=== PATIENT | female | born 1970 | race African-American/Black ===

== ENCOUNTER 2019-11-29 12:09 | Outpatient (CLI) | payer BC, SELFPAY ==
--- NOTE | ~2019-11-29 | XR_ITS ---
XR chest 2V DATE: 11/29/2019 12:09 INDICATION: Cough, chest pain TECHNIQUE: PA and lateral views COMPARISON: None FINDINGS: Normal heart size. No hilar or mediastinal enlargement. No pulmonary infiltrate or consol idation, pulmonary vascular congestion or pleural effusion or pneumothorax. Status post cholecystectomy. Degenerative spurring and mild scoliosis of the thoracic spine. IMPRESSION: No active cardiopulmonary disease Reviewed, dictated and finalized at location B.
[2019-11-29 12:44] LABS: Basophils Absolute Auto 0.1 K/mm3 (0.0-0.1); Basophils Percent Auto 0.7 % (0.2-1.2); Eosinophils Absolute Auto 0.6 K/mm3 (0-0.3); Eosinophils Percent Auto 8.2 % (0-4.4); Hematocrit 32.4 % (37.0-47.0); Immature Granulocyte Absolute 0.01 K/mm3 (0.00-0.031); Immature Granulocyte Percent A 0.1 % (0-0.5); Lymphocytes Absolute Auto 3.25 K/mm3 (0.9-3.2); Mean Corpuscular HGB Conc 27.8 g/dl (32-36); Mean Corpuscular Hemoglobin 20.3 pg (26-34); Mean Corpuscular Volume 73.1 fl (80-100); Mean Platelet Volume 10.5 fl (7.4-10.4); Monocytes Absolute Auto 0.5 K/mm3 (0.1-0.6); Monocytes Percent Auto 7.1 % (2.6-8.5); Neutrophils Absolute Auto 2.5 K/mm3 (1.3-6.7); Neutrophils Percent Auto 36.9 % (45.5-73.1); Platelet Count Result 407 k/mm3 (150-375); Red Blood Count 4.43 M/mm3 (4.2-5.4); Red Cell Distribution Width 17.7 % (11.5-14.5); White Blood Count 6.9 K/mm3 (4.5-10.0)
[2019-11-29 12:59] LABS: Blood Urea Nitrogen 12 mg/dL (7-17); Calcium 8.8 mg/dL (8.4-10.2); Carbon Dioxide 25 mmol/L (22-30); Chloride 110 mmol/L (98-107); Estimated Glomerular Filt Rate > 60; Glucose 89 mg/dL (65-105); Potassium 3.7 mmol/L (3.4-5.0); Sodium 140 mmol/L (137-145)
[2019-11-29 13:24] LABS: Hypochromasia 1+ (NORMAL); Platelet Estimate Increased (Adequate)
[2019-11-29 13:25] LABS: Anisocytosis 1+ (NORMAL)
== END 2019-11-29 12:10 | disposition home or self-care (01) ==
PROVIDERS: PCP Family Medicine; Visit Provider Family Medicine
DX: D50.9 Iron deficiency anemia, unspecified (principal); F41.8 Other specified anxiety disorders; R05 Cough
CPT/HCPCS: 36415; 71046; 80048; 85025

== ENCOUNTER 2019-12-08 10:38 | Outpatient (CLI) | payer BC, SELFPAY ==
[2019-12-08 11:27] LABS: Iron 31 ug/dL (37-170)
[2019-12-08 11:36] LABS: Percent Iron Saturation 8 % (20-50)
== END 2019-12-08 10:39 | disposition home or self-care (01) ==
PROVIDERS: PCP Family Medicine; Visit Provider Family Medicine
DX: D50.8 Other iron deficiency anemias (principal)
CPT/HCPCS: 36415; 82728; 83540; 83550

== ENCOUNTER 2020-06-22 08:13 | Outpatient (CLI) | payer BC, SELFPAY ==
--- NOTE | 2020-06-22 11:30 | NEURO_ITS ---
Patient Number: [id number] Impression: # Complains of numbness of upper extremities. # No Carpal Tunnel Syndrome or ulnar neuropathy. # Normal motor and sensory nerve conduction study. # Normal needle/EMG exam. # Clinical correlation recommended. Nerve Conduction Studies Anti Sensory Summary Table Stim Site NR Peak (ms) P-T Amp (?V) Site1 Site2 Delta-P (ms) Dist (cm) Geovanni (m/s) Left Median Anti Sensory (2-3nd Digit) Wrist 2.8 96.0 Wrist 2-3nd Digit 2.8 14.0 50 Wrist 2.7 90.6 Wrist 2-3nd Digit 2.8 14.0 50 Right Median Anti Sensory (2-3nd Digit) Wrist 2.8 71.4 Wrist 2-3nd Digit 2.8 14.0 50 Wrist 2.8 78.8 Wrist 2-3nd Digit 2.8 14.0 50 Left Radial Anti Sensory (Base 1st Digit) Wrist 1.9 27.2 Wrist Base 1st Digit 1.9 0.0 Right Radial Anti Sensory (Base 1st Digit) Wrist 2.2 21.7 Wrist Base 1st Digit 2.2 0.0 Left Ulnar Anti Sensory (5th Digit) Wrist 2.5 89.9 Wrist 5th Digit 2.5 14.0 56 Right Ulnar Anti Sensory (5th Digit) Wrist 2.3 66.1 Wrist 5th Digit 2.3 14.0 61 Motor Summary Table Stim Site NR Onset (ms) O-P Amp (mV) Site1 Site2 Delta-0 (ms) Dist (cm) Geovanni (m/s) Left Median Motor (Abd Poll Brev) Wrist 3.7 3.8 Elbow Wrist 4.8 29.0 60 Elbow 8.5 1.3 Right Median Motor (Abd Poll Brev) Wrist 3.2 7.2 Elbow Wrist 5.0 29.0 58 Elbow 8.2 5.9 Left Ulnar Motor (Abd Dig Minimi) Wrist 2.5 6.6 A Elbow Wrist 4.8 29.0 60 A Elbow 7.3 6.2 Right Ulnar Motor (Abd Dig Minimi) Wrist 3.0 4.4 A Elbow Wrist 4.8 28.0 58 A Elbow 7.8 4.4 F Wave Studies NR F-Lat (ms) L-R F-Lat (ms) Left Median (Mrkrs) (Abd Poll Brev) 25.46 1.15 Right Median (Mrkrs) (Abd Poll Brev) 26.61 1.15 Left Ulnar (Mrkrs) (Abd Dig Min) 25.75 1.12 Right Ulnar (Mrkrs) (Abd Dig Min) 26.88 1.12 EMG Side Muscle Nerve Root Ins Act Fibs Amp Dur Recrt Comment Right 1stDorInt Ulnar C8-T1 Nml Nml Nml Nml Nml Right Ext Indicis Radial (Post Int) C7-8 Nml Nml Nml Nml Nml Right Ext Digitorum Radial (Post Int) C7-8 Nml Nml Nml Nml Nml Right BrachioRad Radial C5-6 Nml Nml Nml Nml Nml Right PronatorTeres Median C6-7 Nml Nml Nml Nml Nml Right Abd Poll Brev Median C8-T1 Nml Nml Nml Nml Nml Left 1stDorInt Ulnar C8-T1 Nml Nml Nml Nml Nml Left Ext Indicis Radial (Post Int) C7-8 Nml Nml Nml Nml Nml Left Ext Digitorum Radial (Post Int) C7-8 Nml Nml Nml Nml Nml Left BrachioRad Radial C5-6 Nml Nml Nml Nml Nml Left PronatorTeres Median C6-7 Nml Nml Nml Nml Nml Left Abd Poll Brev Median C8-T1 Nml Nml Nml Nml Nml Right ABD Dig Min Ulnar C8-T1 Nml Nml Nml Nml Nml Left ABD Dig Min Ulnar C8-T1 Nml Nml Nml Nml Nml Right Anconeus Radial C7-8 Nml Nml Nml Nml Nml Right Brachialis Musculocut C5-6 Nml Nml Nml Nml Nml Left Anconeus Radial C7-8 Nml Nml Nml Nml Nml Left Brachialis Musculocut C5-6 Nml Nml Nml Nml Nml MTDD
== END 2020-06-22 08:14 | disposition home or self-care (01) ==
PROVIDERS: PCP Family Medicine; Visit Provider Family Medicine
DX: R20.0 Anesthesia of skin (principal)
CPT/HCPCS: 95886; 95911

== ENCOUNTER 2020-08-14 11:40 | Outpatient (CLI) | payer BC, SELFPAY ==
--- NOTE | ~2020-08-14 | XR_ITS ---
EXAMINATION: XR chest 2V 08/14/2020 12:21 INDICATION: Cough and shortness of breath PROCEDURE: 2 view chest COMPARISON: 11/29/2019 FINDINGS: The lungs are clear. The cardiomediastinal silhouette is within normal limits. There are no pleural effusions. There is no pneumothorax suspected. IMPRESSION: 1: NO ACUTE CARDIOPULMONARY DISEASE. Reviewed, dictated and finalized at location A. RTER EXPORTER
[2020-08-14 12:16] LABS: Basophils Percent Auto 0.6 % (0.2-1.2); Eosinophils Absolute Auto 0.3 K/mm3 (0-0.3); Hematocrit 25.3 % (37.0-47.0); Immature Granulocyte Absolute 0.02 K/mm3 (0.00-0.031); Immature Granulocyte Percent A 0.3 % (0-0.5); Lymphocytes Absolute Auto 3.05 K/mm3 (0.9-3.2); Lymphocytes Percent Auto 44.7 % (18.3-44.2); Mean Corpuscular HGB Conc 27.7 g/dl (32-36); Mean Corpuscular Hemoglobin 17.7 pg (26-34); Mean Corpuscular Volume 64.1 fl (80-100); Mean Platelet Volume 9.2 fl (7.4-10.4); Monocytes Absolute Auto 0.5 K/mm3 (0.1-0.6); Monocytes Percent Auto 7.3 % (2.6-8.5); Neutrophils Percent Auto 43.1 % (45.5-73.1); Nucleated Red Blood Cells Perc 0.3 % (0.0-0.2); Platelet Count Result 620 k/mm3 (150-375); Red Blood Count 3.95 M/mm3 (4.2-5.4); Red Cell Distribution Width 19.1 % (11.5-14.5); White Blood Count 6.8 K/mm3 (4.5-10.0)
--- NOTE | 2020-08-14 12:29 | ECG_ITS ---
Measurements Intervals [place] Rate: 81 P: 17 AL: 169 QRS: 35 QRSD: 82 T: 50 QT: 382 QTc: 444 Interpretive Statements SINUS RHYTHM NORMAL ECG Electronically Signed On 08-14-2020 12:55:08 HOSPITAL CLINIC ASSISTANT by Ulices Hazel D.O.
[2020-08-14 12:39] LABS: Anion Gap 6 mmol/L (8-16); Blood Urea Nitrogen 21 mg/dL (7-17); Calcium 8.5 mg/dL (8.4-10.2); Carbon Dioxide 27 mmol/L (22-30); Chloride 104 mmol/L (98-107); Estimated Glomerular Filt Rate > 60; Glucose 102 mg/dL (65-105); NT Pro B Type Natriuretic Pept 18 PG/ML (5-100); Potassium 4.4 mmol/L (3.4-5.0); Sodium 137 mmol/L (137-145)
[2020-08-14 12:53] LABS: Iron < 10 ug/dL (37-170)
[2020-08-14 13:05] LABS: Percent Iron Saturation < 3 % (20-50)
[2020-08-14 13:31] LABS: Hypochromasia 2+ (NORMAL); Platelet Estimate Adequate (Adequate); Target Cells 1+ (NORMAL)
[2020-08-14 13:32] LABS: Ovalocytes 1+ (NORMAL); Poikilocytosis 1+ (NORMAL); Tear Drop Cells 1+ (NORMAL)
== END 2020-08-14 11:41 | disposition home or self-care (01) ==
PROVIDERS: PCP Family Medicine; Visit Provider Nurse Practitioner Family
DX: D50.9 Iron deficiency anemia, unspecified (principal); R06.02 Shortness of breath; R05 Cough
CPT/HCPCS: 36415; 71046; 80048; 82607; 82728; 83540; 83550; 83880; 85025; 93005

== ENCOUNTER 2020-08-15 10:32 | Emergency (ER) | payer BC, SELFPAY ==
--- NOTE | 2020-08-15 10:36 | PC.NURSE ---
Pt ambulatory to ED with and son. States is here for an iron infusion and some blood infusions maybe. I'm supposed to be admitted . Call to both [facility] [facility] to see if outpatient infusions are scheduled, or patient is supposed to be a direct admission; no order found. ED registration process finishes. Pt requests when putting armband on that this RN call Dr. Lamb's office to confirm that she's not supposed to be outpatient, as she just had labs drawn yesterday and they told her to come in. [id number] Chen's office, spoke with Dr. Chen. States she was told to come to the ED last evening for pt's self-complaints of coughing, wheezing, dyspnea, and inability to walk. They told her at that time that her hgb was 7.0, and to expect that she may get admitted for a blood infusion and possibly an iron infusion. They've also set up a follow up with cardiology and have set up a follow up for iron infusion per Dr. Reardon(?), without a definite date set. Pt then into triage room. Explained to and grown son that the patient is only allowed one visitor while in the ED, and if the patient would be admitted, the hospital's policy during the pandemic is to have no visitors. requests to speak with the patient. senior etl developer Suzette arrives to triage to take pt to the room. asks again about visitor policy and the restriction was explained to him again. Pt states well, I don't think I'm going to stay. What are the consequences if I go home, what will happen? . Suzette and this RN explained that patient could become further fatigued, may become short of breath, and it puts a strain on her heart, leading to heart problems. Pt gives hx of having problems with her iron and needing transfusions since gastric bypass surgery. Outpatient iron infusions stopped when the patients insurance changed in January. Pt and state that they're going to go home and attempt to follow up with Dr. Lamb and wait for the transfusion . Pt, , and son all ambulatory out of the ED.
== END 2020-08-15 10:36 | disposition left against medical advice (07) ==
LOC: ANHED 11:24
PROVIDERS: PCP Family Medicine
DX: Z53.21 Procedure and treatment not carried out due to patient leaving prior to being seen by health care provider (principal)
CPT/HCPCS: 99199

== ENCOUNTER 2020-08-23 07:19 | Outpatient (RCR) | payer BC, SELFPAY ==
[2020-08-23] VITALS (8 sets, daily range): BP systolic 112–133; BP diastolic 62–85; PULSE 80–88; RESP 14–16; TEMP 35.8–37; O2SAT 98–100
[2020-08-23 08:12] LABS: Hematocrit 25.4 % (37.0-47.0); Mean Corpuscular HGB Conc 26.8 g/dl (32-36); Mean Corpuscular Hemoglobin 17.5 pg (26-34); Mean Corpuscular Volume 65.5 fl (80-100); Platelet Count Result 395 k/mm3 (150-375); Red Blood Count 3.88 M/mm3 (4.2-5.4); Red Cell Distribution Width 19.5 % (11.5-14.5); White Blood Count 3.9 K/mm3 (4.5-10.0)
[2020-08-23 08:15] LABS: Hemoglobin 6.8 g/dL (12.0-15.0)
== END 2020-11-19 23:59 | disposition home or self-care (01) ==
LOC: ANHCPCTRAN 07:19
PROVIDERS: Internal Medicine Hematology & Oncology; PCP Family Medicine; Visit Provider Family Medicine
DX: D64.9 Anemia, unspecified (principal)
CPT/HCPCS: 36415; 36430; 85027; 86850; 86900; 86901; 86922; 86923; J7050; P9016

== ENCOUNTER 2020-09-05 15:52 | Outpatient (CLI) | payer BC, SELFPAY ==
[2020-09-05 17:20] LABS: Iron 19 ug/dL (37-170)
[2020-09-05 17:31] LABS: Percent Iron Saturation 4 % (20-50)
== END 2020-09-05 15:53 | disposition home or self-care (01) ==
LOC: ANHLAB 15:53
PROVIDERS: PCP Family Medicine; Visit Provider Family Medicine
DX: D50.9 Iron deficiency anemia, unspecified (principal)
CPT/HCPCS: 36415; 83540; 83550; 85014; 85018

== ENCOUNTER 2020-09-27 07:36 | Outpatient (CLI) | payer BC, SELFPAY ==
--- NOTE | ~2020-09-27 | MR_ITS ---
EXAMINATION: MR brain/brain stem wo con DATE: 09/27/2020 08:12 INDICATION: Right-sided weakness. TECHNIQUE: Magnetic resonance imaging (MRI) of the brain and brainstem was performed without intraven ous contrast. Sequences included sagittal and axial T1-weighted FSE, axial diffusion-weighted FS EPI, axial T2*-weighted GRE, axial T2-weighted FLAIR Propeller, and axial T2-weighted Propeller. Apparent diffusion coefficient (ADC) maps were created. COMPARISON: Brain MRI 04/15/2018 FINDINGS: There is an empty sella. There are scattered areas of nonspecific increased T2-weighted s ignal intensity in the cerebral white matter. There is no intracranial hemorrhage, acute infarction, or abnormal intracranial mass lesion. The ventricles are normal in size. The paranasal sinuses are cl ear. The orbits are normal. There is a trace right mastoid effusion. IMPRESSION: 1. Stable mild nonspecific cerebral white matter disease, which likely represents chronic small vesse l ischemic disease. Reviewed, dictated and finalized at location A. TIVE CUTTER IMPRESSION: 1. Stable mild nonspecific cerebral white matter disease, which likely represen ts chronic small vessel ischemic disease.
== END 2020-09-27 07:37 ==
PROVIDERS: PCP Family Medicine; Visit Provider Family Medicine
DX: R53.1 Weakness (principal); R93.0 Abnormal findings on diagnostic imaging of skull and head, not elsewhere classified
CPT/HCPCS: 70551

== ENCOUNTER 2020-10-31 13:49 | Outpatient (CLI) | payer BC, SELFPAY ==
[2020-10-31 14:30] LABS: Hematocrit 30.7 % (37.0-47.0); Hemoglobin 8.7 g/dL (12.0-15.0); Mean Corpuscular HGB Conc 28.3 g/dl (32-36); Mean Corpuscular Hemoglobin 19.6 pg (26-34); Mean Corpuscular Volume 69.1 fl (80-100); Mean Platelet Volume 9.4 fl (7.4-10.4); Platelet Count Result 399 k/mm3 (150-375); Red Blood Count 4.44 M/mm3 (4.2-5.4); Red Cell Distribution Width 22.1 % (11.5-14.5); White Blood Count 7.8 K/mm3 (4.5-10.0)
[2020-10-31 15:15] LABS: Iron 22 ug/dL (37-170)
[2020-10-31 15:25] LABS: Percent Iron Saturation 5 % (20-50)
== END 2020-10-31 13:50 | disposition home or self-care (01) ==
PROVIDERS: PCP Family Medicine; Visit Provider Family Medicine
DX: D50.9 Iron deficiency anemia, unspecified (principal)
CPT/HCPCS: 36415; 83540; 83550; 85027

== ENCOUNTER → 2020-12-30 01:40 | Outpatient (CLI) | payer BC, SELFPAY ==
[2020-12-30 19:16] LABS: SARS-CoV-2 RNA PCR Negative
== END ==
PROVIDERS: PCP Family Medicine; Visit Provider Internal Medicine Gastroenterology
DX: Z01.812 Encounter for preprocedural laboratory examination (principal); Z20.822 Contact with and (suspected) exposure to COVID-19
CPT/HCPCS: C9803; U0003; U0005

== ENCOUNTER 2021-01-03 01:02 | Day surgery (SDC) | payer BC, SELFPAY ==
[2020-12-29 12:21] VITALS: BMI 35.2
[2021-01-03] MEDS: LACTATED RINGERS 1,000 ML 150 ML IV CONT (12:09)
--- NOTE | 2021-01-03 12:18 | WPDANESEPPF ---
Anes - Initial Pre Proc Eval Procedure: Operation Date: 01/03/21 12:30 Proposed Procedures p Esophagogastroduodenoscopy & Colonoscopy - Lex Delgadillo DO Date/Time: 01/03/21 12:18 Surgeon: Lex Delgadillo DO Pre Op Diagnosis: GERD, constipation Patient Data Age: 50 Gender: F Height: 5 ft 5 in Weight: 96 kg Allergies Allergy/AdvReac Type Severity Reaction Status Date / Time morphine Allergy Intermediate Itching Verified 12/29/20 12:22 tramadol Allergy Intermediate Itching Verified 12/29/20 12:22 Home Medications Medication Instructions Recorded Confirmed Type celecoxib 200 mg capsule 200 mg PO BID #60 cap 07/11/20 12/29/20 Rx pregabalin 150 mg capsule 150 mg PO TID #90 cap 08/17/20 12/29/20 Rx baclofen 10 mg tablet 10 mg PO QID PRN tablet 12/19/20 12/29/20 History alprazolam 1 mg PO BID 12/29/20 12/29/20 History escitalopram oxalate 20 mg PO DAILY 12/29/20 12/29/20 History omeprazole 20 mg PO BID 12/29/20 12/29/20 History quetiapine 200 mg PO HS 12/29/20 12/29/20 History quetiapine 400 mg PO HS 12/29/20 12/29/20 History zolpidem 5 mg tablet 5 mg PO .hs #30 tablet 01/01/21 Rx Patient hx anesthesia problems: none Family hx anesthesia problems: none PMFSH Past Medical History Medical History Anxiety Arthritis Bilateral hand numbness BMI 34.0-34.9,adult Chills Constipation Depression Depression with anxiety Dizziness Edema leg Fibromyalgia GERD (gastroesophageal reflux disease) Headache Idiopathic insomnia Iron deficiency anemia following bariatric surgery Knee pain, bilateral Low vitamin B12 level Lumbosacral radiculopathy due to degenerative joint disease of spine Melena Migraine without aura and without status migrainosus, not intractable Nausea Neuropathy Pes planus of both feet Plantar fasciitis of right foot Rib pain on left side Seizure-like activity Small vessel disease, cerebrovascular Stomach pain Stomach ulcer Vaginal discharge Vision abnormalities Weight gain Surgical History Surgical History History of carpal tunnel release History of gastric bypass History of knee surgery bilateral knee scope Family History Family History Grandparent Hypertension Father No problems noted. Mother Cancer Sibling Asthma Other Carcinoma of colon Diabetes mellitus Family history of coronary artery disease Family history of lung cancer Family history of malignant neoplasm Social History Social History Smoking status: Never smoker Tobacco type: cigarettes Alcohol intake: current Substance use: never Substance use type: does not use Living arrangements: with family Additional occupation/education comments: disabled Spiritual care concerns: No Anes - Eval Final PreProcedure Day of Procedure 01/03/21 12:18 Patient weight: obese Heart: regular rate and rhythm Lungs: clear to auscultation Airway: Mallampati scale class II Neurological: alert and oriented Last oral intake: >/= 8 hours ASA classification: III Emergent: no Anesthetic plan: proceed Anesthesia type and monitoring: general GIVS and standard monitoring Informed Consent: The patient's anesthetic plan and its attendant risks and benefits were discussed with the patient/family/POA. Questions were solicited and answers provided to the satisfaction of the patient/family/POA.
[2021-01-03 12:21] VITALS: BP 126/82; PULSE 82; RESP 18; TEMP 35.9; O2SAT 100; BMI 36.3
--- NOTE | 2021-01-03 12:38 | WPDGICN ---
GI Consult Note Consult date/time: 01/03/21 12:38 HPI: reason for visit EGD colonoscopy. This very pleasant lady seen at the request of the primary physician. Impression: Iron deficiency anemia. Upper versus lower GI etiology. This most likely related to her gastric bypass. B12 deficiency. This is most likely related to her gastric bypass. GERD. She has remote history gastric ulcer disease. She is having dysphagia underlying ring or stricture should be excluded. Chronic idiopathic constipation. Anxiety/depression. Fibromyalgia. Migraines. Neuropathy. Seizure-like activity. Recommendation: EGD and colonoscopy. History: Very pleasant lady is being evaluated for iron deficiency anemia B12 deficiency. She has a history of reflux disease and status post gastric bypass. This is the most likely etiology for her anemia. Patient does have a history of heartburn. She has remote history gastric ulcer disease. She continues to have abdominal burning and heartburn. She has dysphagia to both solids and liquids. She is here for EGD. The patient has a history of chronic constipation. She has a bowel movement every 2 months. She has been tried on multiple medications: Stool softeners, Linzess, MiraLax and OTC medications. She is here for colonoscopy. Previous EGD and colonoscopy has been unrewarding. The patient was found to be recurrently anemic after her iron infusions were stopped she does report occasional melena. Physical examination: General: very pleasant patient in no acute distress. HEENT: Head was normocephalic sclerae is clear mouth without masses neck was supple. Heart: Rate rhythm regular without S3 or S4. Lungs: CTA. Abdomen: Soft with no guarding or rigidity. Bowel sounds were active. Neurologic: Cranial nerves 2 through 12 intact. No focal defects. No clonus. Musculoskeletal system: Revealed no joint tenderness or swelling no muscle atrophy. Extremities: Reveal no significant edema. Skin: Warm and dry with normal turgor. Mental status: intact. Patient is alert and oriented. Review of Systems Review of Systems: All systems reviewed & are unremarkable except as noted in HPI and below [facility] Past Medical History Medical History (Updated 01/03/21 @ 12:39 by Lex Delgadillo DO) Anxiety Arthritis BMI 34.0-34.9,adult Chronic idiopathic constipation Depression with anxiety Fibromyalgia GERD (gastroesophageal reflux disease) Headache Idiopathic insomnia Iron deficiency anemia following bariatric surgery Low vitamin B12 level Lumbosacral radiculopathy due to degenerative joint disease of spine Migraine without aura and without status migrainosus, not intractable Neuropathy Plantar fasciitis of right foot Rib pain on left side Seizure-like activity Small vessel disease, cerebrovascular Stomach ulcer Surgical History Surgical History History of carpal tunnel release History of gastric bypass History of knee surgery bilateral knee scope Family History Family History Grandparent Hypertension Father No problems noted. Mother Cancer Sibling Asthma Other Carcinoma of colon Diabetes mellitus Family history of coronary artery disease Family history of lung cancer Family history of malignant neoplasm Social History Social History Smoking status: Never smoker Tobacco type: cigarettes Alcohol intake: current Substance use: never Substance use type: does not use Living arrangements: with family Additional occupation/education comments: disabled Spiritual care concerns: No Meds Home Medications and Allergies Home Medications Medication Instructions Recorded Confirmed Type celecoxib 200 mg capsule 200 mg PO BID #60 ca
[2021-01-03 13:35] VITALS: BP 118/73; PULSE 87; RESP 26; O2SAT 100
[2021-01-03 13:45] VITALS: BP 102/71; PULSE 80; RESP 17; O2SAT 100
[2021-01-03 13:55] VITALS: BP 118/79; PULSE 77; RESP 16; O2SAT 100
== END 2021-01-03 14:03 | disposition home or self-care (01) ==
PROVIDERS: PCP Family Medicine; Visit Provider Internal Medicine Gastroenterology
PROC: 0DJ08ZZ Inspection of Upper Intestinal Tract, Via Natural or Artificial Opening Endoscopic (ICD-10-PCS; CPT 43235; principal; 2021-01-03 12:30)
DX: D50.9 Iron deficiency anemia, unspecified (principal); K59.09 Other constipation; K21.9 Gastro-esophageal reflux disease without esophagitis; K22.2 Esophageal obstruction; F41.8 Other specified anxiety disorders; G62.9 Polyneuropathy, unspecified; M79.7 Fibromyalgia; E53.8 Deficiency of other specified B group vitamins; Z98.84 Bariatric surgery status; E66.9 Obesity, unspecified; Z68.36 Body mass index [BMI] 36.0-36.9, adult; Z87.11 Personal history of peptic ulcer disease
CPT/HCPCS: 45378; 43239; 43450; 87081; 88305; C9803; J2001; J2704; J7120; U0003; U0005

== ENCOUNTER 2021-01-15 14:49 | Outpatient (CLI) | payer BC, SELFPAY ==
[2021-01-15 15:48] LABS: Hematocrit 29.9 % (37.0-47.0); Hemoglobin 8.2 g/dL (12.0-15.0); Mean Corpuscular HGB Conc 27.4 g/dl (32-36); Mean Corpuscular Hemoglobin 17.9 pg (26-34); Mean Corpuscular Volume 65.4 fl (80-100); Mean Platelet Volume 10.1 fl (7.4-10.4); Platelet Count Result 337 k/mm3 (150-375); Red Blood Count 4.57 M/mm3 (4.2-5.4); Red Cell Distribution Width 18.6 % (11.5-14.5); White Blood Count 7.7 K/mm3 (4.5-10.0)
[2021-01-15 15:57] LABS: Anion Gap 7 mmol/L (8-16); Blood Urea Nitrogen 12 mg/dL (7-17); Calcium 9.6 mg/dL (8.4-10.2); Carbon Dioxide 26 mmol/L (22-30); Chloride 108 mmol/L (98-107); Estimated Glomerular Filt Rate > 60; Glucose 92 mg/dL (65-105); Potassium 4.2 mmol/L (3.4-5.0); Sodium 141 mmol/L (137-145)
[2021-01-15 16:36] LABS: Iron 17 ug/dL (37-170)
[2021-01-15 16:45] LABS: Percent Iron Saturation 3 % (20-50)
== END 2021-01-15 14:50 | disposition home or self-care (01) ==
LOC: ANHLAB 14:51
PROVIDERS: Nurse Practitioner Family; PCP Family Medicine; Visit Provider Family Medicine
DX: D50.8 Other iron deficiency anemias (principal); R60.0 Localized edema
CPT/HCPCS: 36415; 80048; 83540; 83550; 85027

== ENCOUNTER 2021-02-07 09:01 | Outpatient (CLI) | payer BC, SELFPAY ==
[2021-02-07 09:19] LABS: Basophils Percent Auto 0.5 % (0.2-1.2); Eosinophils Absolute Auto 0.1 K/mm3 (0-0.3); Eosinophils Percent Auto 1.6 % (0-4.4); Hemoglobin 8.1 g/dL (12.0-15.0); Immature Granulocyte Absolute 0.01 K/mm3 (0.00-0.031); Immature Granulocyte Percent A 0.2 % (0-0.5); Lymphocytes Absolute Auto 2.81 K/mm3 (0.9-3.2); Lymphocytes Percent Auto 45.6 % (18.3-44.2); Mean Corpuscular Hemoglobin 17.5 pg (26-34); Mean Corpuscular Volume 64.8 fl (80-100); Mean Platelet Volume 8.9 fl (7.4-10.4); Monocytes Absolute Auto 0.6 K/mm3 (0.1-0.6); Monocytes Percent Auto 10.1 % (2.6-8.5); Neutrophils Absolute Auto 2.6 K/mm3 (1.3-6.7); Platelet Count Result 211 k/mm3 (150-375); Red Blood Count 4.63 M/mm3 (4.2-5.4); Red Cell Distribution Width 19.7 % (11.5-14.5); White Blood Count 6.2 K/mm3 (4.5-10.0)
[2021-02-07 09:28] LABS: Anion Gap 9 mmol/L (8-16); Blood Urea Nitrogen 14 mg/dL (7-17); Calcium 8.9 mg/dL (8.4-10.2); Carbon Dioxide 26 mmol/L (22-30); Chloride 107 mmol/L (98-107); Estimated Glomerular Filt Rate > 60; Glucose 94 mg/dL (65-105); Potassium 4.2 mmol/L (3.4-5.0); Sodium 142 mmol/L (137-145)
[2021-02-07 09:58] LABS: Anisocytosis 1+ (NORMAL); Hypochromasia 2+ (NORMAL); Microcytosis 1+ (NORMAL); Ovalocytes 1+ (NORMAL); Platelet Estimate Adequate (Adequate)
== END 2021-02-07 09:02 | disposition home or self-care (01) ==
PROVIDERS: PCP Family Medicine; Visit Provider Family Medicine
DX: R60.0 Localized edema (principal); D50.8 Other iron deficiency anemias
CPT/HCPCS: 36415; 80048; 85025

== ENCOUNTER 2021-03-15 07:49 | Outpatient (CLI) | payer BC, SELFPAY ==
--- NOTE | ~2021-03-15 | XR_ITS ---
XR ribs BI 3V w CXR 2V DATE: 03/15/2021 10:34 INDICATION: Fall. Bilateral rib pain. TECHNIQUE: PA and lateral chest. 3 views of left ribs and 3 views of right ribs. COMPARISON: 08/14/2022 view chest FINDINGS: Normal heart size. Aortic arch calcification. Calcified right paratracheal nodes consistent with old granulomatous disease. No pulmonary infiltrate or consolidation, pleural effusion or pulmon luna vascular congestion or pneumothorax. Diffuse osteopenia. No rib fracture or bone destruction is detected. Surgical clips overlie the right upper abdomen, likely due to cholecystectomy. IMPRESSION: No rib fracture is detected Osteopenia No active cardiopulmonary disease Aortic arch calcification Status post cholecystectomy Reviewed, dictated and finalized at location A.
[2021-03-15 08:48] LABS: Hematocrit 28.7 % (37.0-47.0); Hemoglobin 7.5 g/dL (12.0-15.0); Mean Corpuscular HGB Conc 26.1 g/dl (32-36); Mean Corpuscular Hemoglobin 17.3 pg (26-34); Mean Corpuscular Volume 66.1 fl (80-100); Mean Platelet Volume 9.6 fl (7.4-10.4); Platelet Count Result 366 k/mm3 (150-375); Red Blood Count 4.34 M/mm3 (4.2-5.4); Red Cell Distribution Width 20.2 % (11.5-14.5); White Blood Count 7.5 K/mm3 (4.5-10.0)
[2021-03-15 08:58] LABS: Anion Gap 9 mmol/L (8-16); Blood Urea Nitrogen 19 mg/dL (7-17); Calcium 8.8 mg/dL (8.4-10.2); Carbon Dioxide 25 mmol/L (22-30); Chloride 105 mmol/L (98-107); Estimated Glomerular Filt Rate > 60; Glucose 92 mg/dL (65-105); Potassium 4.2 mmol/L (3.4-5.0); Sodium 139 mmol/L (137-145)
[2021-03-15 09:23] LABS: Iron 14 ug/dL (37-170)
[2021-03-15 09:33] LABS: Percent Iron Saturation 3 % (20-50)
== END 2021-03-15 07:50 | disposition home or self-care (01) ==
PROVIDERS: PCP Family Medicine; Referring Provider Nurse Practitioner Family; Visit Provider Family Medicine
DX: D50.8 Other iron deficiency anemias (principal); M85.88 Other specified disorders of bone density and structure, other site; I70.0 Atherosclerosis of aorta; Z90.49 Acquired absence of other specified parts of digestive tract
CPT/HCPCS: 36415; 71046; 71110; 80048; 83540; 83550; 85027

== ENCOUNTER 2021-03-26 08:00 | Outpatient (RCR) | payer BC, SELFPAY ==
[2021-03-26] VITALS (11 sets, daily range): BP systolic 116–131; BP diastolic 66–86; PULSE 83–96; RESP 14–20; TEMP 35.8–36.8; O2SAT 97–100
[2021-03-26 08:24] LABS: Hemoglobin 6.9 g/dL (12.0-15.0)
[2021-03-26] MEDS: diphenhydrAMINE HCl CAP 25 MG CAPSULE PO (09:17)
[2021-03-26] MEDS: methylPREDNISolone SOD SUCC 125 MG VIAL IV PUSH (09:18)
[2021-03-26] MEDS: FUROSEMIDE INJ 40 MG/4 ML VIAL IV PUSH (11:58)
[2021-03-26] MEDS: NITROGLYCERIN SL 0.4 MG TABLET (12:46)
[2021-03-26] MEDS: ACETAMINOPHEN 500 MG TABLET 1000 MG (13:40)
--- NOTE | 2021-03-26 15:49 | PC.NURSE ---
Patient complaining of chest pain 02/08, Dr. Chen said she should go to ER, and patient refuses to go. Dr. Chen said to give SL Nitro. Patient stated that it helped. Patient then complained of a headache 1000mg of Acetaminophen given per Dr. Chen's order. Dr. Chen said if patient will not go to the ER at least finish out the unit, then send her home.
== END 2021-06-22 23:59 | disposition home or self-care (01) ==
LOC: ANHCPCTRAN 08:00
PROVIDERS: PCP Family Medicine; Visit Provider Family Medicine
DX: D50.9 Iron deficiency anemia, unspecified (principal)
CPT/HCPCS: 36415; 36430; 85014; 85018; 86850; 86900; 86901; 86920; 96374; A9270; J1940; J2930; J7050; P9016

== ENCOUNTER 2021-04-17 11:36 | Outpatient (CLI) | payer BC, SELFPAY ==
--- NOTE | ~2021-04-17 | XR_ITS ---
EXAMINATION: XR chest 2V 04/17/2021 12:34 INDICATION: Cough PROCEDURE: PA and lateral views of the chest COMPARISON: 03/15/2021 FINDINGS: The lungs are clear. The cardiomediastinal silhouette is within normal limits. There are no pleural effusions. There is no pneumothorax suspected. IMPRESSION: 1: NO ACUTE CARDIOPULMONARY DISEASE. Reviewed, dictated and finalized at location A.
[2021-04-17 12:15] LABS: Hematocrit 35.9 % (37.0-47.0); Mean Corpuscular HGB Conc 27.9 g/dl (32-36); Mean Corpuscular Hemoglobin 20.4 pg (26-34); Mean Corpuscular Volume 73.3 fl (80-100); Mean Platelet Volume 9.6 fl (7.4-10.4); Platelet Count Result 551 k/mm3 (150-375); Red Cell Distribution Width 29.2 % (11.5-14.5); White Blood Count 8.3 K/mm3 (4.5-10.0)
[2021-04-17 12:29] LABS: Anion Gap 7 mmol/L (8-16); Blood Urea Nitrogen 14 mg/dL (7-17); Calcium 9.4 mg/dL (8.4-10.2); Carbon Dioxide 27 mmol/L (22-30); Chloride 107 mmol/L (98-107); Estimated Glomerular Filt Rate > 60; Glucose 94 mg/dL (65-110); Potassium 4.3 mmol/L (3.4-5.0); Sodium 141 mmol/L (137-145)
[2021-04-17 13:22] LABS: Iron 38 ug/dL (37-170)
[2021-04-17 13:32] LABS: Percent Iron Saturation 8 % (20-50)
== END 2021-04-17 11:37 | disposition home or self-care (01) ==
LOC: ANHLAB 11:38
PROVIDERS: PCP Family Medicine; Visit Provider Family Medicine
DX: D50.8 Other iron deficiency anemias (principal); R05 Cough
CPT/HCPCS: 36415; 71046; 80048; 83540; 83550; 85027

== ENCOUNTER 2021-06-13 09:35 | Outpatient (CLI) | payer BC, SELFPAY ==
[2021-06-13 10:05] LABS: Hematocrit 35.3 % (37.0-47.0); Hemoglobin 10.1 g/dL (12.0-15.0); Mean Corpuscular HGB Conc 28.6 g/dl (32-36); Mean Corpuscular Volume 76.9 fl (80-100); Mean Platelet Volume 9.5 fl (7.4-10.4); Platelet Count Result 292 k/mm3 (150-375); Red Blood Count 4.59 M/mm3 (4.2-5.4); Red Cell Distribution Width 23.2 % (11.5-14.5); White Blood Count 7.9 K/mm3 (4.5-10.0)
[2021-06-13 11:03] LABS: Iron 28 ug/dL (37-170)
[2021-06-13 11:12] LABS: Percent Iron Saturation 5 % (20-50)
== END 2021-06-13 09:36 | disposition home or self-care (01) ==
PROVIDERS: PCP Family Medicine; Visit Provider Family Medicine
DX: D50.8 Other iron deficiency anemias (principal)
CPT/HCPCS: 36415; 83540; 83550; 85027

== ENCOUNTER 2021-08-06 09:17 | Outpatient (CLI) | payer BC, SELFPAY ==
[2021-08-06 09:53] LABS: Anion Gap 13 mmol/L (8-16); Blood Urea Nitrogen 17 mg/dL (7-17); Calcium 9.5 mg/dL (8.4-10.2); Carbon Dioxide 25 mmol/L (22-30); Chloride 97 mmol/L (98-107); Estimated Glomerular Filt Rate > 60; Glucose 117 mg/dL (65-110); Potassium 3.7 mmol/L (3.4-5.0); Sodium 135 mmol/L (137-145)
[2021-08-06 09:54] LABS: Iron 32 ug/dL (37-170)
[2021-08-06 10:03] LABS: Percent Iron Saturation 7 % (20-50)
[2021-08-06 10:22] LABS: Hematocrit 37.3 % (37.0-47.0); Hemoglobin 11.2 g/dL (12.0-15.0); Mean Corpuscular Hemoglobin 21.5 pg (26-34); Mean Corpuscular Volume 71.7 fl (80-100); Mean Platelet Volume 10.6 fl (7.4-10.4); Platelet Count Result 380 k/mm3 (150-375); Red Cell Distribution Width 17.8 % (11.5-14.5); White Blood Count 8.5 K/mm3 (4.5-10.0)
== END 2021-08-06 09:18 | disposition home or self-care (01) ==
LOC: ANHLAB 09:19
PROVIDERS: PCP Family Medicine; Visit Provider Family Medicine
DX: R60.0 Localized edema (principal); D50.9 Iron deficiency anemia, unspecified
CPT/HCPCS: 36415; 80048; 83540; 83550; 85027

== ENCOUNTER 2022-04-24 14:17 | Outpatient (CLI) | payer OTHER, BC, SELFPAY ==
[2022-04-24 15:36] LABS: Basophils Percent Auto 0.4 % (0.2-1.2); Eosinophils Absolute Auto 0.1 K/mm3 (0-0.3); Eosinophils Percent Auto 0.9 % (0-4.4); Hematocrit 38.4 % (37.0-47.0); Hemoglobin 11.1 g/dL (12.0-15.0); Immature Granulocyte Absolute 0.03 K/mm3 (0.00-0.031); Immature Granulocyte Percent A 0.3 % (0-0.5); Lymphocytes Absolute Auto 4.11 K/mm3 (0.9-3.2); Lymphocytes Percent Auto 39.5 % (18.3-44.2); Mean Corpuscular HGB Conc 28.9 g/dl (32-36); Mean Corpuscular Hemoglobin 22.2 pg (26-34); Mean Corpuscular Volume 76.8 fl (80-100); Mean Platelet Volume 10.3 fl (7.4-10.4); Monocytes Absolute Auto 0.7 K/mm3 (0.1-0.6); Monocytes Percent Auto 6.4 % (2.6-8.5); Neutrophils Absolute Auto 5.5 K/mm3 (1.3-6.7); Neutrophils Percent Auto 52.5 % (45.5-73.1); Platelet Count Result 401 k/mm3 (150-375); Red Cell Distribution Width 19.7 % (11.5-14.5); White Blood Count 10.4 K/mm3 (4.5-10.0)
[2022-04-24 15:51] LABS: Anion Gap 12 mmol/L (8-16); Blood Urea Nitrogen 14 mg/dL (7-17); Calcium 8.9 mg/dL (8.4-10.2); Carbon Dioxide 23 mmol/L (22-30); Chloride 103 mmol/L (98-107); Estimated Glomerular Filt Rate > 60; Glucose 79 mg/dL (65-110); Potassium 4.1 mmol/L (3.4-5.0); Sodium 138 mmol/L (137-145)
[2022-04-24 16:02] LABS: Iron 28 ug/dL (37-170)
[2022-04-24 16:12] LABS: Percent Iron Saturation 6 % (20-50)
[2022-04-24 16:19] LABS: Vitamin D 25 Hydroxy 15.8 ng/mL
[2022-04-26 19:36] LABS: Homocysteine 14.4 umol/L (<10.4)
[2022-04-26 23:24] LABS: Methylmalonic Acid 205 nmol/L (87-318)
[2022-04-27 21:19] LABS: Alpha 1 Globulin 0.3 g/dL (0.2-0.3); Beta 1 Globulin 0.5 g/dL (0.4-0.6); Gamma Globulin 1.1 g/dL (0.8-1.7); Protein, Total 7.3 g/dL (6.1-8.1)
== END 2022-04-24 14:18 | disposition home or self-care (01) ==
PROVIDERS: PCP Family Medicine; Visit Provider Family Medicine
DX: D50.8 Other iron deficiency anemias (principal); E53.8 Deficiency of other specified B group vitamins; E55.9 Vitamin D deficiency, unspecified; G99.2 Myelopathy in diseases classified elsewhere
CPT/HCPCS: 36415; 80048; 82306; 82607; 83090; 83540; 83550; 83921; 84155; 84165; 85025

== ENCOUNTER 2022-04-28 07:21 | Outpatient (CLI) | payer OTHER, BC, SELFPAY ==
--- NOTE | ~2022-04-28 | MR_ITS ---
EXAMINATION: MR thoracic spine wo/w con DATE: 04/28/2022 09:30 INDICATION: Myelopathy. Back pain. Bilateral arm, hand, leg, and foot weakness. TECHNIQUE: Magnetic resonance imaging (MRI) of the thoracic spine was performed without and with 20 m L MultiHance intravenous contrast. COMPARISON: None FINDINGS: There is 6 degrees dextrocurvature of mid thoracic spine spine. There is 6 degrees levocurv ature of lower thoracic spine. Vertebral body heights are normal. There is mildly decreased disc heig ht from T4-T5 through T6-T7. At T4-T5, there is a bulging disc with mild central canal stenosis. At T 5-T6, the disc is bulging with mild central canal stenosis. At T6-T7, the disc is bulging with mild c entral canal stenosis. At T7-T8, the disc is bulging with mild central canal stenosis. There is multi level mild facet joint osteoarthritis. On the left, there is mild neural foraminal stenosis at T1-T2. The spinal cord signal intensity is normal, but sensitivity and specificity are moderately decreased by motion artifact. IMPRESSION: 1. Mild thoracic spondylosis. Reviewed, dictated and finalized at location A.
--- NOTE | ~2022-04-28 | MR_ITS ---
EXAMINATION: MR lumbar spine wo/w con DATE: 04/28/2022 09:31 INDICATION: Myelopathy. Back pain. TECHNIQUE: Magnetic resonance imaging (MRI) of the lumbar spine was performed without and with 20 mL MultiHance intravenous contrast. COMPARISON: None FINDINGS: There is 9 degrees dextrocurvature of lumbar spine. L5 is a transitional segment. There is 3 mm additional listhesis of L4 on L5. Vertebral body heights are normal. There is mildly decreased d isc height at L4-L5. The following disc levels are specifically discussed: L1-L2: The disc does not extend beyond the endplate margin. There is moderate bilateral facet joint o steoarthritis. There is no neural foraminal stenosis. There is no central canal stenosis. L2-L3: There is a right foraminal protrusion. There is severe bilateral facet joint osteoarthritis. T here is mild right neural foraminal stenosis. There is no central canal stenosis. L3-L4: The disc is bulging and has an annular fissure. There is severe right and moderate left facet joint osteoarthritis. There is mild right neural foraminal stenosis. There is no central canal stenos is. L4-L5: The disc is bulging and has an annular fissure. There is mild right and severe left facet join t osteoarthritis. There is mild bilateral neural foraminal stenosis. There is mild central canal sten osis. L5-S1: The disc does not extend beyond the endplate margin. There is moderate right and severe left f acet joint osteoarthritis. There is mild bilateral neural foraminal stenosis. There is no central can al stenosis. IMPRESSION: 1. Mild lumbar spondylosis. Reviewed, dictated and finalized at location A. IMPRESSION: 1. Mild lumbar spondylosis.
== END 2022-04-28 07:22 | disposition home or self-care (01) ==
PROVIDERS: PCP Family Medicine
DX: M47.894 Other spondylosis, thoracic region (principal); M47.896 Other spondylosis, lumbar region
CPT/HCPCS: 72157; 72158; A9577

== ENCOUNTER 2022-08-02 13:49 | Outpatient (CLI) | payer OTHER, BC, SELFPAY ==
--- NOTE | ~2022-08-02 | XR_ITS ---
XR hand RT min 3V DATE: 08/02/2022 14:12 INDICATION: Fall. Finger pain. TECHNIQUE: 3 views COMPARISON: None FINDINGS: There is osteopenia. No fracture or dislocation, periosteal reaction or bone destruction. No erosive change or chondrocalc inosis is noted. IMPRESSION: Osteopenia Reviewed, dictated and finalized at location B. R PROJECT COORDINATION SPECIALIST IMPRESSION: Osteopenia
== END 2022-08-02 13:50 | disposition home or self-care (01) ==
PROVIDERS: PCP Family Medicine; Visit Provider Nurse Practitioner Family
DX: M79.644 Pain in right finger(s) (principal); M85.841 Other specified disorders of bone density and structure, right hand
CPT/HCPCS: 73130

== ENCOUNTER 2022-10-17 09:24 | Outpatient (CLI) | payer OTHER, BC, SELFPAY ==
[2022-10-17 10:58] LABS: Iron 23 ug/dL (37-170)
[2022-10-17 11:09] LABS: Percent Iron Saturation 5 % (20-50)
== END 2022-10-17 09:25 | disposition home or self-care (01) ==
PROVIDERS: PCP Family Medicine; Visit Provider Nurse Practitioner Family
DX: D50.8 Other iron deficiency anemias (principal)
CPT/HCPCS: 36415; 83540; 83550

== ENCOUNTER 2022-10-17 14:47 | Outpatient (CLI) | payer OTHER, BC, SELFPAY ==
--- NOTE | ~2022-10-17 | MM_ITS ---
EXAMINATION: MM screening jamie BI w zoë HISTORY: Screening mammogram TECHNIQUE: Craniocaudal and mediolateral oblique 3-D tomosynthesis images were obtained and synthetic 2-D images were generated. CAD analysis was submitted and interpreted. COMPARISON: 02/14/2018, 01/28/2017 bilateral screening mammogram examinations BREAST PARENCHYMAL COMPOSITION: There are scattered areas of fibroglandular density. FINDINGS: There is no evidence of suspicious mass, calcification, or architectural distortion to sugg est malignancy in either breast. There has been no suspicious interval change. IMPRESSION: 1. No mammographic evidence of malignancy. 2. Recommend routine screening mammography in one year. BI-RADS Category 1: Negative Reviewed, dictated and finalized at location A. O LAB SPECIALIST
== END 2022-10-17 14:48 ==
PROVIDERS: PCP Family Medicine; Visit Provider Family Medicine
DX: Z12.31 Encounter for screening mammogram for malignant neoplasm of breast (principal)
CPT/HCPCS: 77063; 77067

== ENCOUNTER 2022-11-12 10:45 | Outpatient (CLI) | payer BC, SELFPAY ==
[2022-11-12 11:21] LABS: Hematocrit 36.2 % (37.0-47.0); Hemoglobin 10.5 g/dL (12.0-15.0); Mean Corpuscular Hemoglobin 22.5 pg (26-34); Mean Corpuscular Volume 77.5 fl (80-100); Mean Platelet Volume 10.6 fl (7.4-10.4); Platelet Count Result 336 k/mm3 (150-375); Red Blood Count 4.67 M/mm3 (4.2-5.4); Red Cell Distribution Width 17.9 % (11.5-14.5); White Blood Count 7.5 K/mm3 (4.5-10.0)
[2022-11-12 11:38] LABS: Alanine Aminotransferase 47 U/L (6-35); Albumin Level 4.1 g/dL (3.5-5.1); Alkaline Phosphatase 129 U/L (38-126); Anion Gap 6 mmol/L (8-16); Aspartate Amino Transferase 46 U/L (14-36); Bilirubin,Total 0.3 mg/dL (0.2-1.3); Blood Urea Nitrogen 13 mg/dL (7-17); Calcium 8.6 mg/dL (8.4-10.2); Carbon Dioxide 28 mmol/L (22-30); Chloride 105 mmol/L (98-107); Estimated Glomerular Filt Rate > 60; Glucose 96 mg/dL (65-110); Potassium 4.2 mmol/L (3.4-5.0); Sodium 139 mmol/L (137-145)
[2022-11-12 12:12] LABS: Vitamin D 25 Hydroxy 27.1 ng/mL
== END 2022-11-12 10:46 | disposition home or self-care (01) ==
LOC: ANHLAB 10:46
PROVIDERS: PCP Family Medicine; Visit Provider Family Medicine
DX: D50.9 Iron deficiency anemia, unspecified (principal); E53.8 Deficiency of other specified B group vitamins; E55.9 Vitamin D deficiency, unspecified; R79.89 Other specified abnormal findings of blood chemistry; G62.9 Polyneuropathy, unspecified
CPT/HCPCS: 36415; 80053; 82306; 82607; 84443; 85027

== ENCOUNTER 2023-03-06 11:16 | Outpatient (CLI) | payer OTHER, SELFPAY ==
--- NOTE | ~2023-03-06 | XR_ITS ---
Clinical Indication: Chest pain AP and lateral views of the chest: Comparison: 04/17/2021 Findings: The lungs are clear, without evidence of focal consolidation or pleural effusion. Cardiome diastinal silhouette is within normal limits. Calcified right hilar lymph nodes are present. Bones an d soft tissues are unremarkable. Impression: Clear lungs. Reviewed, dictated and finalized at location . Impression: Clear lungs.
[2023-03-06 12:02] LABS: Basophils Absolute Auto 0.1 K/mm3 (0.0-0.1); Basophils Percent Auto 0.6 % (0.2-1.2); Eosinophils Absolute Auto 0.2 K/mm3 (0-0.3); Eosinophils Percent Auto 1.9 % (0-4.4); Hematocrit 34.7 % (37.0-47.0); Hemoglobin 9.8 g/dL (12.0-15.0); Immature Granulocyte Absolute 0.03 K/mm3 (0.00-0.031); Immature Granulocyte Percent A 0.4 % (0-0.5); Lymphocytes Absolute Auto 3.19 K/mm3 (0.9-3.2); Lymphocytes Percent Auto 38.7 % (18.3-44.2); Mean Corpuscular HGB Conc 28.2 g/dl (32-36); Mean Corpuscular Hemoglobin 21.6 pg (26-34); Mean Corpuscular Volume 76.6 fl (80-100); Mean Platelet Volume 10.8 fl (7.4-10.4); Monocytes Absolute Auto 0.7 K/mm3 (0.1-0.6); Monocytes Percent Auto 8.4 % (2.6-8.5); Neutrophils Absolute Auto 4.1 K/mm3 (1.3-6.7); Platelet Count Result 373 k/mm3 (150-375); Red Blood Count 4.53 M/mm3 (4.2-5.4); Red Cell Distribution Width 17.9 % (11.5-14.5); White Blood Count 8.3 K/mm3 (4.5-10.0)
[2023-03-06 12:11] LABS: Anion Gap 5 mmol/L (8-16); Blood Urea Nitrogen 15 mg/dL (7-17); Calcium 8.7 mg/dL (8.4-10.2); Carbon Dioxide 34 mmol/L (22-30); Chloride 100 mmol/L (98-107); Estimated Glomerular Filt Rate > 60; Glucose 99 mg/dL (65-110); Potassium 3.8 mmol/L (3.4-5.0); Sodium 139 mmol/L (137-145)
[2023-03-06 12:25] LABS: Anisocytosis 1+ (NORMAL); Hemoglobin A1C 6.2 % (<5.7); Platelet Estimate Adequate (Adequate); Schistocytes None Seen (NORMAL)
[2023-03-06 12:27] LABS: Iron 28 ug/dL (37-170)
--- NOTE | 2023-03-06 12:35 | ECG_ITS ---
Measurements Intervals [place] Rate: 66 P: 7 VA: 173 QRS: 13 QRSD: 81 T: 89 QT: 353 QTc: 370 Interpretive Statements SINUS RHYTHM NONSPECIFIC T-WAVE ABNORMALITY- ANTEROLAT/HIGH LAT LEADS BASELINE ARTIFACT- I, III, AVR, AVL BORDERLINE ECG COMPARED TO ECG 08/14/2020 12:37:45 T-WAVE ABNORMALITY NOW PRESENT Electronically Signed On 03-06-2023 13:31:52 CDT by Ulices Hazel D.O.
[2023-03-06 12:36] LABS: Percent Iron Saturation 5 % (20-50)
[2023-03-06 12:46] LABS: Vitamin D 25 Hydroxy 18.7 ng/mL
== END 2023-03-06 11:17 | disposition home or self-care (01) ==
PROVIDERS: PCP Family Medicine; Visit Provider Family Medicine
DX: R07.9 Chest pain, unspecified (principal); R73.09 Other abnormal glucose; G62.9 Polyneuropathy, unspecified; E55.9 Vitamin D deficiency, unspecified; R79.89 Other specified abnormal findings of blood chemistry; D50.9 Iron deficiency anemia, unspecified; R07.89 Other chest pain; E53.8 Deficiency of other specified B group vitamins; R06.00 Dyspnea, unspecified; R94.31 Abnormal electrocardiogram [ECG] [EKG]
CPT/HCPCS: 36415; 71046; 80048; 82306; 82607; 83036; 83540; 83550; 84443; 85025; 93005

== ENCOUNTER 2023-04-15 10:07 | Outpatient (CLI) | payer OTHER, SELFPAY ==
--- NOTE | 2023-04-15 | ECHO_ITS ---
Patient Info Name: Dina Orr Age: 53 years : 1970 Gender: Female Ht: 64 in Wt: 231 lbs BSA: 2.23 m2 HR: 85 bpm BP: 146 / 92 mmHg Heart Rhythm: Sinus Rhythm Technical Quality: Fair Exam Date: 04/15/2023 10:40 AM Exam Location: [facility] Pulmonary Patient Status: Outpatient Admit Date: 04/15/2023 Staff Ordering Physician: Roman Chen MD Charm Filter Operator Helper: Christine Riddle RDCS Attending Provider: Roman Chen MD Referring Physician: Gustavo KILPATRICK; Exam Type: CA echo doppler color flow Study Info Indications R60.9 - Edema, unspecified R94.31 - Abnormal electrocardiogram ECG EKG R06.09 - Other forms of dyspnea Complete two-dimensional, color flow and Doppler transthoracic echocardiogram is performed. Summary 1. Complete two-dimensional, color flow and Doppler transthoracic echocardiogram is performed. 2. Left ventricular chamber dimension is normal. 3. Left ventricular systolic function is normal, estimated at 60-65%. 4. There is moderate concentric increased left ventricular wall thickness. 5. The left ventricular diastolic function is normal. 6. E/e' 8 is minimally elevated. 7. No pulmonary hypertension, estimated pulmonary arterial systolic pressure is 24 mmHg. Left Ventricle E/e' 8 is minimally elevated. Left ventricular chamber dimension is normal. Left ventricular systolic function is normal, estimated at 60-65%. There is moderate concentric increased left ventricular wall thickness. The left ventricular diastolic function is normal. Right Ventricle Right ventricular chamber dimension is normal. Right ventricular systolic function is normal. Left Atria Left atrial chamber dimension is normal. Right Atria Right atrial chamber dimension is normal. Aortic Valve The aortic valve is trileaflet. There is no aortic valve stenosis. There is no aortic valve regurgitation. Pulmonic Valve There is no pulmonic regurgitation. Mitral Valve There is no mitral valve stenosis. There is no mitral valve regurgitation. Tricuspid Valve There is no tricuspid valve regurgitation. No pulmonary hypertension, estimated pulmonary arterial systolic pressure is 24 mmHg. Pericardium/Pleural There is no pericardial effusion. Inferior Vena Cava Normal inferior vena cava with >50% collapse upon inspiration consistent with normal right atrial pressure, 5 mmHg. Aorta The aortic root size at the sinus of Valsalva is normal. Left Ventricular Outflow Tract Name Value Normal LVOT 2D LVOT Diameter 2.0 cm LVOT Doppler LVOT Peak Gradient 5 mmHg LVOT Mean Gradient 3 mmHg LVOT VTI 23 cm LVOT VTI/AV VTI Ratio 0.9 LVOT Stroke Volume 75 ml LVOT CO 6.0 l/min LVOT CI 2.7 l/min/m2 Pulmonic Valve Name Value Normal RVOT Doppler
== END 2023-04-15 10:08 | disposition home or self-care (01) ==
PROVIDERS: PCP Family Medicine; Visit Provider Family Medicine
DX: R60.9 Edema, unspecified (principal); R94.31 Abnormal electrocardiogram [ECG] [EKG]; R06.09 Other forms of dyspnea
CPT/HCPCS: 93306

== ENCOUNTER 2024-07-22 11:57 | Emergency (ER) | payer OTHER, SELFPAY ==
[2024-07-22] VITALS (8 sets, daily range): BP systolic 137–138; BP diastolic 94–95; PULSE 71–82; RESP 12–20; TEMP 36.4; O2SAT 98–100
--- NOTE | ~2024-07-22 | CT_ITS ---
EXAMINATION: CT brain wo con DATE: 07/22/2024 13:47 INDICATION: Altered mental status. TECHNIQUE: Computed tomography (CT) of the head was performed without intravenous contrast. The mA wa s adjusted according to patient size. Iterative reconstruction technique was employed. The dose-lengt h product was 605.33 mGy-cm. COMPARISON: Brain MRI 09/27/2020 FINDINGS: There is no intracranial hemorrhage, acute infarction, or abnormal intracranial mass lesion . There is an empty sella. There are scattered areas of low attenuation in the cerebral white matter. The ventricles are normal in size. There is mild mucosal thickening in the ethmoid sinuses. The mast oid air cells are normal. The orbits are normal. IMPRESSION: 1. Stable mild nonspecific cerebral white matter disease, which likely represents chronic small vesse l ischemic disease. Reviewed, dictated and finalized at location A. CLAMP OPERATOR IMPRESSION: 1. Stable mild nonspecific cerebral white matter disease, which likely represen ts chronic small vessel ischemic disease.
--- NOTE | ~2024-07-22 | XR_ITS ---
CHEST RADIOGRAPH CLINICAL HISTORY: AMS, WEAKNESS, SOB, BACK PAIN . COMPARISON: 03/06/2023 TECHNIQUE: Single portable view of the chest. FINDINGS The cardiomediastinal silhouette is enlarged, unchanged. Small bore catheter projects to the left of midline, within the overlying soft tissues, extending int o the peritoneal cavity. The lungs are clear. Visualized osseous structures and remaining soft tissues are otherwise unremarkable. IMPRESSION: Persisting cardiomegaly without focal infiltrate or effusion. Reviewed, dictated and finalized at location A. OUT WORKER
--- NOTE | 2024-07-22 12:05 | ECG_ITS ---
Test Date: 2024-07-22 12:16:04 Measurements Intervals [place] Rate: 77 P: 43 SD: 166 QRS: 14 QRSD: 89 T: 83 QT: 382 QTc: 435 Interpretive Statements SINUS RHYTHM BORDERLINE T WAVE ABNORMALITY- HIGH LATERAL LEADS BASELINE ARTIFACT- I, III, AVR, AVL, AVF, V4-V6 BORDERLINE ECG No previous ECG available for comparison Electronically Signed On 07-22-2024 12:26:39 [employer]MB[employer]ING [employer] by Ulices Hazel D.O.
[2024-07-22 12:45] LABS: Basophils Percent Auto 0.5 % (0.2-1.2); Eosinophils Absolute Auto 0.2 K/mm3 (0-0.3); Eosinophils Percent Auto 1.7 % (0-4.4); Hematocrit 39.6 % (37.0-47.0); Hemoglobin 12.2 g/dL (12.0-15.0); Immature Granulocyte Absolute 0.03 K/mm3 (0.00-0.031); Immature Granulocyte Percent A 0.3 % (0-0.5); Lymphocytes Percent Auto 39.1 % (18.3-44.2); Mean Corpuscular HGB Conc 30.8 g/dl (32-36); Mean Corpuscular Hemoglobin 25.3 pg (26-34); Monocytes Absolute Auto 0.5 K/mm3 (0.1-0.6); Monocytes Percent Auto 5.5 % (2.6-8.5); Neutrophils Absolute Auto 4.6 K/mm3 (1.3-6.7); Neutrophils Percent Auto 52.9 % (45.5-73.1); Platelet Count Result 280 k/mm3 (150-375); Red Blood Count 4.83 M/mm3 (4.2-5.4); Red Cell Distribution Width 18.9 % (11.5-14.5); White Blood Count 8.7 K/mm3 (4.5-10.0)
[2024-07-22 12:59] LABS: Add Urine Microscopic? NO; Appearance Urine Clear (Clear); Bilirubin Urine Negative (Negative); Blood Urine Negative (Negative); Color Urine Yellow (Yellow); Glucose Urine UA Negative (Negative); Ketones Urine Negative (Negative); Leukocyte Esterase Ur Negative LEU/UL (Negative); Nitrate Urine Negative (Negative); Protein Urine Negative (Negative); Specific Grav Ur 1.025 (1.001-1.035); Urobilinogen Urine 0.2 mg/dL (<2.0)
[2024-07-22 12:59] LABS: BEDSIDEPREGUCG Negative (Negative)
[2024-07-22 13:23] LABS: Alanine Aminotransferase 50 U/L (6-35); Alkaline Phosphatase 116 U/L (38-126); Anion Gap 6 mmol/L (4-12); Aspartate Amino Transferase 39 U/L (14-36); Bilirubin,Total 0.4 mg/dL (0.2-1.3); Blood Urea Nitrogen 14 mg/dL (7-17); Calcium 9.2 mg/dL (8.4-10.2); Carbon Dioxide 29 mmol/L (22-30); Chloride 104 mmol/L (98-107); Estimated Glomerular Filt Rate > 60; Glucose 87 mg/dL (65-110); INR 1.1; Partial Thromboplastin Time 29.6 Seconds (22.3-36.8); Potassium 4.1 mmol/L (3.4-5.0); Prothrombin Time 14.4 Seconds (11.1-14.7); Sodium 139 mmol/L (137-145)
--- NOTE | 2024-07-22 13:35 | ED.AMS ---
HPI - Altered Mental Status General Chief Complaint: Altered Mental Status Stated Complaint: AMS Time Seen by Provider: 07/22/24 12:08 History of Present Illness HPI narrative: 54-year-old female presenting with altered mental status. Patient's is at bedside and states that her last known well was sometime last night. States that this morning she seemed more confused than normal. States that she was saying things that did not really make sense. She kept calling out for him and then would not respond when he would check on her. States that when she had a stroke a few years ago she was confused at that time so he became concerned. Currently, patient denies complaint. Related Data Home Medications Medication Instructions Recorded Confirmed baclofen 10 mg tablet 10 mg PO QHS 09/12/22 03/06/23 Allergies Allergy/AdvReac Type Severity Reaction Status Date / Time morphine Allergy Intermediate Itching Verified 03/06/23 10:03 tramadol Allergy Intermediate Itching Verified 03/06/23 10:03 Review of Systems Review of Systems: All systems reviewed & are unremarkable except as noted in HPI and below PMFSH Past Medical History Medical History Anxiety Arthritis BMI 34.0-34.9,adult BMI 37.0-37.9, adult BMI 38.0-38.9,adult BMI 39.0-39.9,adult BMI greater than 40 Chest pain Chronic idiopathic constipation Depression with anxiety Dysuria Elevated glucose Esophageal stricture Fibromyalgia GERD (gastroesophageal reflux disease) Headache Idiopathic insomnia Iron deficiency anemia following bariatric surgery Leg weakness, bilateral Low vitamin B12 level Low vitamin D level Lumbosacral radiculopathy due to degenerative joint disease of spine Migraine without aura and without status migrainosus, not intractable Neuropathy Plantar fasciitis of right foot Rib pain on left side Screening mammogram for high-risk patient Seizure-like activity Small fiber neuropathy Small vessel disease, cerebrovascular Stomach ulcer Surgical History Surgical History H/O tooth extraction History of carpal tunnel release History of gastric bypass History of knee surgery bilateral knee scope Family History Family History Grandparent Hypertension Father Mother Cancer Sibling Asthma Acute anxiety Other Carcinoma of colon Diabetes mellitus Family history of coronary artery disease Family history of lung cancer Family history of malignant neoplasm Social History Social History Smoking status: Never smoker Second hand tobacco smoke exposure: Yes Alcohol intake: current Substance use: never Substance use type: does not use Living arrangements: with family Occupation/Education: unemployed Additional occupation/education comments: disabled Gender identity (if verbalized by the patient): Female Spiritual care concerns: No Exam Narrative: GENERAL: Chronically ill-appearing, no acute distress HEAD: Normocephalic, atraumatic. EYES: PERRLA and EOMI. ENT: Nares clear, no rhinorrhea or epistaxis. Mucous membranes moist. NECK: Supple. CHEST: Clear to auscultation. No respiratory distress. HEART: Regular rate and rhythm ABDOMEN: Soft, nontender, nondistended EXTREMITIES: Normal range of motion. + bilateral pitting edema lower extremities SKIN: Warm, dry, no rash. NEURO: Alert and oriented x3. 4/5 strength bilateral lower extremities which family states is baseline, 5/5 strength bilateral upper extremities, no pronator drift, no dysarthria or aphasia, [id number] is slow but intact PSYCH: Normal mood and affect. Course Vital Signs Vital signs: Vital Signs Temperature 97.6 F 07/22/24 11:58 Pulse Rate 81 07/22/24 11:58 Respiratory Rate 12 07/22/24 11:58 Blood Pressure 138/95 H 07/22/24 11:58 Pulse Oximetry 100 07/22/24 11:58 Oxygen Delivery Room Air 07/22/24 11:58 Temperature 97.6 F 07/22/24 11:58 Pulse Rate 71 07/22/24 15:16 Respiratory Rate 20 07/22/24 15:16 Blood Pressure 137/94 H 07/22/24 12:03 Pulse Oximetry 98 07/22/24 15:16 Oxygen Delivery Room Air 07/22/24 12:06 MDM - Altered Mental Status MDM Narrative Medical decision making narrative: 54-year-old female presenting with altered mental status. Vitals within normal limits. Exam remarkable for the above. For me, she is alert and oriented x3 and responding appropriately. EKG per my interpretation shows normal sinus rhythm, nonspecific T-wave changes, no ST elevations or depressions. Blood work is unremarkable. UA is unremarkable. CT brain without acute abnormalities. Chest x-ray with baseline cardiomegaly. Discussed the reassuring workup with the patient and her family. Patient is now feeling well and wants to go home. Discussed with them that I do not have a great answer for her about the episode of confusion so I would be happy to admit her for further workup. They declined and states that she is back to normal and would like to go which I do not think is unreasonable. Advised close PCP follow-up. Discussed appropriate return precautions. Patient agreeable this plan. Discharged in stable condition. Differential Diagnosis Differential diagnosis: Likely altered mental status and other (Confusion, electrolyte derangement) Medical Records Attestation: I reviewed the patient's medical records. Lab Data Attestation: I reviewed the patient's lab results. 07/22/24 12:25 07/22/24 13:04 Labs: Lab Results 07/22/24 07/22/24 07/22/24 Range/Units 12:05 12:25 12:47 WBC 8.7 (4.5-10.0) K/mm3 RBC 4.83 (4.2-5.4) M/mm3 Hgb 12.2 (12.0-15.0) g/dL Hct 39.6 (37.0-47.0) % MCV 82.0 (80-100) fl MCH 25.3 L (26-34) pg MCHC 30.8 L (32-36) g/dl RDW 18.9 H (11.5-14.5) % Plt Count 280 (150-375) k/mm3 MPV 12.0 H (7.4-10.4) fl Immature Gran % (Auto) 0.3 (0-0.5) % Neut % (Auto) 52.9 (45.5-73.1) % Lymph % (Auto) 39.1 (18.3-44.2) % Garden % (Auto) 5.5 (2.6-8.5) % Eos % (Auto) 1.7 (0-4.4) % Baso % (Auto) 0.5 (0.2-1.2) % Lymph # (Auto) 3.40 H (0.9-3.2) K/mm3 Garden # (Auto) 0.5 (0.1-0.6) K/mm3 Eos # (Auto) 0.2 (0-0.3) K/mm3 Baso # (Auto) 0.0 (0.0-0.1) K/mm3 Abs Immat Gran (auto) 0.03 (0.00-0.031) K/mm3 Absolute Neuts (auto) 4.6 (1.3-6.7) K/mm3 Absolute Nucleated RBC 0.000 (0.0-0.012) K/mm3 Nucleated RBC % 0.0 (0.0-0.2) % PT (11.1-14.7) Seconds INR APTT (22.3-36.8) Seconds Sodium (137-145) mmol/L Potassium (3.4-5.0) mmol/L Chloride (98-107) mmol/L Carbon Dioxide (22-30) mmol/L Anion Gap (4-12) mmol/L BUN (7-17) mg/dL Creatinine (0.7-1.0) mg/dL Estim Creat Clear Calc Estimated GFR (59 - ) Glucose (65-110) mg/dL Calcium (8.4-10.2) mg/dL Total Bilirubin (0.2-1.3) mg/dL AST (14-36) U/L ALT (6-35) U/L Alkaline Phosphatase (38-126) U/L Ammonia (9-30) umol/L Total Protein (6.3-8.2) g/dL Albumin (3.5-5.1) g/dL Urine Color Yellow (Yellow) Urine Appearance Clear (Clear) Urine pH 5.0 (5.0-9.0) Ur Specific [place] 1.025 (1.001-1.035) Urine Protein Negative (Negative) mg/dL Urine Glucose (UA) Negative (Negative) mg/dL Urine Ketones Negative (Negative) mg/dL Ur Blood (Man) Negative (Negative) Urine Nitrate Negative (Negative) Urine Bilirubin Negative (Negative) Urine Urobilinogen 0.2 (<2.0) mg/dL Leukocyte Esterase Rfl Negative (Negative) NA/UL POC Urine HCG, Qual Negative (Negative) 07/22/24 07/22/24 Range/Units 13:04 14:00 WBC (4.5-10.0) K/mm3 RBC (4.2-5.4) M/mm3 Hgb (12.0-15.0) g/dL Hct (37.0-47.0) % MCV (80-100) fl MCH (26-34) pg MCHC (32-36) g/dl RDW (11.5-14.5) % Plt Count (150-375) k/mm3 MPV (7.4-10.4) fl Immature Gran % (Auto) (0-0.5) % Neut % (Auto) (45.5-73.1) % Lymph % (Auto) (18.3-44.2) % [place] % (Auto) (2.6-8.5) % Eos % (Auto) (0-4.4) % Baso % (Auto) (0.2-1.2) % Lymph # (Auto) (0.9-3.2) K/mm3 [place] # (Auto) (0.1-0.6) K/mm3 Eos # (Auto) (0-0.3) K/mm3 Baso # (Auto) (0.0-0.1) K/mm3 Abs Immat Gran (auto) (0.00-0.031) K/mm3 Absolute Neuts (auto) (1.3-6.7) K/mm3 Absolute Nucleated RBC (0.0-0.012) K/mm3 Nucleated RBC % (0.0-0.2) % PT 14.4 (11.1-14.7) Seconds INR 1.1 APTT 29.6 (22.3-36.8) Seconds Sodium 139 (137-145) mmol/L Potassium 4.1 (3.4-5.0) mmol/L Chloride 104 (98-107) mmol/L Carbon Dioxide 29 (22-30) mmol/L Anion Gap 6 (4-12) mmol/L BUN 14 (7-17) mg/dL Creatinine 0.60 L (0.7-1.0) mg/dL Estim Creat Clear Calc Not Reportable Estimated GFR > 60 (59 - ) Glucose 87 (65-110) mg/dL Calcium 9.2 (8.4-10.2) mg/dL Total Bilirubin 0.4 (0.2-1.3) mg/dL AST 39 H (14-36) U/L ALT 50 H (6-35) U/L Alkaline Phosphatase 116 (38-126) U/L Ammonia < 9 L (9-30) umol/L Total Protein 8.0 (6.3-8.2) g/dL Albumin 4.0 (3.5-5.1) g/dL Urine Color (Yellow) Urine Appearance (Clear) Urine pH (5.0-9.0) Ur Specific [place] (1.001-1.035) Urine Protein (Negative) mg/dL Urine Glucose (UA) (Negative) mg/dL Urine Ketones (Negative) mg/dL Ur Blood (Man) (Negative) Urine Nitrate (Negative) Urine Bilirubin (Negative) Urine Urobilinogen (<2.0) mg/dL Leukocyte Esterase Rfl (Negative) NA/UL POC Urine HCG, Qual (Negative) Imaging Data Radiologist's impression: ITS Impressions Head CT 07/22/24 13:54 IMPRESSION: 1. Stable mild nonspecific cerebral white matter disease, which likely represents chronic small vessel ischemic disease. Chest X-Ray 07/22/24 14:24 IMPRESSION: Persisting cardiomegaly without focal infiltrate or effusion. Critical Care Time Critical Care Time Critical Care Time: No Discharge Plan Discharge Clinical Impression: Episode of confusion Patient Disposition: Home, Self-Care Condition: Stable Instructions: Antibiotic Form, Altered Mental Status (ED) Additional Instructions: The imaging and blood work today are reassuring. Please follow-up closely with your PCP. If your symptoms worsen or other concerning symptoms arise, please return to the ER. Prescriptions: No Action sucralfate [Carafate] 1 gram tablet 1 g PO Q6H Qty: 120 2RF calcium carbonate-vitamin D3 [Os-Luke 500 + D3] 500 mg-5 mcg (200 unit) tablet 1 tablet PO TID Qty: 90 0RF metaxalone 800 mg tablet 800 mg PO TID PRN (Reason: muscle pain) Qty: 60 0RF Hold Instructions: .Provider Order baclofen 10 mg tablet 10 mg PO QHS alprazolam 1 mg tablet 1 mg PO BID Qty: 60 0RF Hold Instructions: Reported this was stopped during her recent hospitalization quetiapine 400 mg tablet 400 mg PO HS Qty: 30 1RF potassium chloride 20 mEq tablet extended release 20 meq PO DAILY Qty: 30 1RF metolazone 5 mg tablet 5 mg PO DAILY Qty: 30 1RF gabapentin 300 mg capsule See Rx Instructions .ROUTE .COMPLEX Qty: 120 1RF Dose Instruction: TAKE 1 CAPSULE BY MOUTH THREE TIMES DAILY Rx Instructions: TAKE 2 CAPSULES in the morning, 1 capsule at noon, and 1 capsule at bedtime furosemide 40 mg tablet 40 mg PO QAM Qty: 30 1RF eszopiclone 3 mg tablet 3 mg PO QHS Qty: 30 1RF escitalopram oxalate 20 mg tablet 20 mg PO DAILY Qty: 30 1RF Follow-up/Referrals: Roman Chen MD [Primary Care Provider] -
[2024-07-22 14:18] LABS: Ammonia < 9 umol/L (9-30)
== END 2024-07-22 16:53 | disposition home or self-care (01) ==
PROVIDERS: Emergency Medicine; Emergency Provider Emergency Medicine; PCP Family Medicine
DX: R41.0 Disorientation, unspecified (principal); K59.04 Chronic idiopathic constipation; K21.9 Gastro-esophageal reflux disease without esophagitis; G62.9 Polyneuropathy, unspecified; M79.7 Fibromyalgia; M19.90 Unspecified osteoarthritis, unspecified site; F41.9 Anxiety disorder, unspecified; Z98.84 Bariatric surgery status; Z86.73 Personal history of transient ischemic attack (TIA), and cerebral infarction without residual deficits; R90.82 White matter disease, unspecified; Z79.899 Other long term (current) drug therapy; R94.31 Abnormal electrocardiogram [ECG] [EKG]; I51.7 Cardiomegaly
CPT/HCPCS: 36415; 70450; 71045; 80053; 81003; 81025; 82140; 85025; 85610; 85730; 93005; 99284

== ENCOUNTER 2025-01-21 21:01 | Emergency (ER) | payer BC, SELFPAY ==
--- NOTE | ~2025-01-21 | CT_ITS ---
EXAMINATION: CTA chest abdomen pelvis DATE: 01/21/2025 23:28 CDT INDICATION: Chest pain radiating to the back. Dissection suspected clinically TECHNIQUE: Computed tomographic angiography (CTA) of the chest was performed, along with multiple con tiguous axial images of the abdomen and pelvis with 100 mL Omnipaque-350 intravenous contrast. The do se-length product was 1788.43 mGy-cm. Maximum intensity projection 3D-reconstructions of the aorta an d other arteries were constructed by the technologist on a separate workstation. FINDINGS/OBSERVATIONS: PULMONARY ARTERIES: No filling defect is identified within the main or proximal pulmonary artery. The main pulmonary artery is not enlarged. THORACIC AORTA: No aneurysmal dilatation or dissection is present. The great vessels are intact LUNGS: Patchy groundglass opacification with a bibasilar distribution along with extension into the r ight hilum. The remainder the lungs are clear. MEDIASTINUM: No morphologically suspicious or pathologically enlarged lymph nodes are identified with in the mediastinum or bilateral axilla. BONES OF THE CHEST: No acute fracture. No significant degenerative disease. No lytic or blastic lesions. HEART: The heart is enlarged, without pericardial effusion. LIVER: The liver enhances homogeneously and is not enlarged. GALLBLADDER AND BILIARY SYSTEM: The gallbladder is surgically absent. PANCREAS: The pancreas enhances homogeneously without ductal dilatation. SPLEEN: The spleen enhances homogeneously and is not enlarged. KIDNEYS: 4 mm nonobstructing calculus within the lower pole of the right kidney. 2 mm nonobstructing calculus within the upper pole of the right kidney. Scattered 2 and 3 mm nonobstructing stones within the left kidney. The remainder of the bilateral kidneys otherwise enhance symmetrically without hydronephrosis or jakob tional renal calculi. ADRENAL GLANDS: Unremarkable. GASTROINTESTINAL TRACT: Postoperative change within the upper abdomen. Mural thickening and edema within the stomach, suggesting gastritis. Significant fecal stasis within the colon APPENDIX: The appendix is not definitively visualized. However, no pericecal inflammatory change is identified suggest the presence of acute appendicitis. VASCULATURE: Unremarkable. LYMPH NODES: No pathologically enlarged or morphologically suspicious lymph nodes within the retroperitoneum or at the root of the mesentery. PELVIC STRUCTURES: The bladder is distended, and otherwise unremarkable. The uterus is surgically absent. BODY WALL AND MUSCULOSKELETAL: Small fat-containing umbilical hernia. No significant degenerative disease within the lower thoracic or lumbosacral spine. IMPRESSION: Findings within the bilateral lung callahan suggesting pulmonary edema versus multifocal pneumonia (les s likely). Bilateral nonobstructing renal calculi. Findings within the stomach suggesting gastritis. Significant fecal stasis. Reviewed, dictated and finalized at location A. IMPRESSION: Findings within the bilateral lung callahan suggesting pulmonary edema versus mul tifocal pneumonia (less likely). Bilateral nonobstructing renal calculi. Findings within the stomach suggesting gastritis. Significant fecal stasis.
--- NOTE | ~2025-01-21 | XR_ITS ---
CHEST RADIOGRAPH, PA AND LATERAL CLINICAL HISTORY: left chest pain, shortness of breath . COMPARISON: 07/22/2024 TECHNIQUE: PA and lateral views of the chest. FINDINGS The cardiomediastinal silhouette is unremarkable. Increased markings within the distribution of the left lower lobe for which an early infiltrate is chavez spected. The remainder of the lungs are clear. IMPRESSION: Possible early infiltrate within the superior segment of the left lower lobe, as detailed above. Reviewed, dictated and finalized at location A. IMPRESSION: Possible early infiltrate within the superior segment of the left lower lobe, a s detailed above.
--- NOTE | ~2025-01-21 | CT_ITS ---
History: Fall PROCEDURE: CT head without contrast. COMPARISON: @ 07/22/2024 TECHNIQUE: Axial imaging of the head performed from the skull base to the vertex without IV contrast. Sagittal a nd coronal reformations obtained. DLP: 605 mGy-cm FINDINGS: The ventricles are normal in size, shape and position. There is no mass, mass effect or midline shift. There is no abnormal extra-axial fluid collection or intracranial hemorrhage. Visualized paranasal sinuses are clear. The mastoid air cells are well aerated. No acute displaced fractures within the overlying cranium. Impression: No acute intracranial hemorrhage or suspicious mass effect. Reviewed, dictated and finalized at location A. Impression: No acute intracranial hemorrhage or suspicious mass effect.
--- NOTE | 2025-01-21 21:04 | ECG_ITS ---
Test Date: 2025-01-21 21:17:36 Measurements Intervals [place] Rate: 95 P: 32 [place]: 155 QRS: 4 QRSD: 89 T: 61 QT: 356 QTc: 449 Interpretive Statements SINUS RHYTHM Compared to ECG 07/22/2024 12:16:04 No significant changes Electronically Signed On 01-22-2025 17:09:27 CDT by Omid Gardner M.D.
--- OUTSIDE RECORDS SUMMARY | 2025-01-21 21:04 | XMS_ITS | Continuity of Care Document ---
Author Organization [facility] Address [address] [place] [address] Phone Care Team Providers Care De Icer Name Role Phone Quin[place] PFEIFFER, Petra Unavailable Unavailable Allergies, Adverse Reactions, Alerts Substance Reaction Status Criticality VENLAFAXINE HCL itching Active No Informati on TRAMADOL HCL itching Active No Information morphine Itching Active No Information Medications Medication Instructions Dosage Effective Dates (start - stop) Status Comments dicyclomine 20 mg tablet take 1 tablet by oral route 3 times every day as needed for abdominal pain 20 MG - Active Linzess 145 mcg capsule take 1 capsule b y oral route every day on an empty stomach at least 30 minutes before 1st meal of the day swallowing whole. - Active pantoprazole 40 mg tablet,delayed release take 1 tablet by oral route 2 times every day 40 MG - Active omeprazole 20 mg capsule,delayed release take 1 capsule by oral route every day 30 minutes to 1 hour before a meal 20 MG - Active Lyrica 100 mg capsule take 1 capsule by oral route 3 times every day 100 MG - Active cyclobenzaprine 10 mg tablet take 1 tablet by oral route 2 times every day 10 MG - Active Premarin 0.625 mg tablet take 1 tablet by oral route every day for 21 consecutive days, followed by 7 days off 0.625 MG - Active sumatriptan 50 mg tablet take 2 tablet by oral route once with fluids as early as possible after the onset of a migraine attack;may repeat after 2 hours if headache returns, not to exceed 200mgin 24hrs 100 MG - Active Xanax 0.25 mg tablet take 1 tablet by oral route 3 times every day 0.25 MG - Active zolpidem 10 mg tablet take 1 tablet by oral route every day at bedtime 10 MG - Active Procedures Procedure Date Offic/outpt E&m [facility] 2 14 Ugi Endo; W/bx 1/mx Offic/outpt E&m [facility] 45 4 Advance Directives Directive Yes / No Effective Date File Name No Information Encounters Encounter Description Practice Location Reason(s) For Visit Diagnoses Date Provider Providers Copied on Encounter [facility] s, [address], [id number] , [place] tel:[phone] [facility] No Information 6 Quincy Lambert. [address] [facility] Amanda [address], [id number] , [place]. tel:[phone] Referring Provider: [place], [address], [place], [address]. tel:[phone] Offic/outpt E&m [facility] 2 [facility] s, [address], [id number] , [place] tel:[phone] [facility] follow up (chief complaint) IBSHelicobacter pylori gastrointestinal infectionGERDFamily history of malignant neoplasm; gastrointestinal tractConstipation, unspecifiedAbdominal pain; epigastric 4 [place]. Referring [place]: [place], [address], [place], [address]. tel:[phone] [facility] s, [address], [id number] , [place] tel:[phone] [facility] No Information 4 [place]. Referring [place]: [place], [address], [place], [address]. tel:[phone] Offic/outpt E&m [place] [facility] Manager s, [address], [place], [place], [id number] , tel:[phone] [facility] multiple GI issues (chief complaint) Abdominal pain; epigastricDysphagia, unspecifiedNausea And VomitingGERDIBSConsti pation, unspecifiedHelicobact er pylori gastrointestinal infectionFamily history of malignant neoplasm; gastrointestinal tractObstructive sleep apnea 4 [place]. Referring [place]: [place], [address], [place], [address]. tel:[phone] Family History Family Member Type Diagnosis Age At Onset Problem (finding) Family history of diabetes mellitus type 2 Problem (finding) Family history of migra ine Paternal aunt Problem (finding) cancer of colon Sister Problem (finding) malignant neoplasm of p harynx Problem (finding) Family history of osteo arthritis Problem (finding) Family history of Obesi ty Problem (finding) Family history of Irritable bowel disease Problem (finding) Family history of diverticulitis of colon Maternal aunt Problem (finding) cancer of colon Problem (finding) Family history of asthm a Father Problem (finding) malignant neoplasm of b one Payers Payer name Insurance type Covered libertarian ID Authoriza tion(s) No Information Social History Type Description Quantity Date Captured Comments Alcohol Use Details Unknown Caffeine Use Details Unknown Tobacco Use Status No Information Smoking Status No Information Sex Female Chief Complaint And Reason For Visit No Information Reason For Referral Reason For Referral No Information Plan Of Treatment Date Type Action Status Referral Ordered: Ugi Endo; W/bx 1/ ordered History Of Present Illness Encounter Date Complaint History Of Prese nt Illness follow up The patient pres ents today for follow up. She underwent an EGD in 06/2014. Noted was a hiatal hernia and evidence of prior gastric bypass. Small bowel and esophageal biopsies were unremarkable. The patient has completed a course of treatment recently for H. pylori with a prevpac. She is currently taking pantoprazole 40mg BID which helps with her reflux symptoms. She tried ranitidine, but states that this medication was not beneficial. Instead, she will take omeprazole prn for breakthrough symptoms which is a few times per week. Of note, she was diagnosed with H. pylori via a urea breath test. In 05/2014, CMP, TSH and CBC were unremarkable. The patient was also diagnosed with H. pylori about 10 years ago in [place]. She states that she was treated at that time, and the bacteria was eradicated. She reports taking aleve BID for fibromyalgia for months. However, she stopped this medication a few weeks ago. The patient also reports significant gas and bloating over the past month. She is not taking a probiotic or a fiber supplement. The patient's intermittent nausea and vomiting as well as dysphagia has resolved since her last visit. She denies weight loss, anorexia, oral lesions, odynophagia or regurgitation. Of note, the patient underwent a gastric bypass about 14 years ago, and a cholecystectomy in 2004. She reports intermittent epigastric abdominal pain as well. She is unable to identify any alleviating or aggravating factors. The pain is a cramping sensation as well as a spasm. She is taking dicyclomine prn which helps with the pain. The pain may last hours, and sometimes wakes her up at night. The patient has a h/o chronic constipation. She has tried miralax and metamucil, but these medications did not help. She received samples of linzess, and is now taking this medication every other day which is helpful. While taking this medication, she will have a BM once a week. Prior to taking this medication, she was having a BM every 2 weeks. She is not taking this medication daily because when she did she reported loose stools. However, she was taking the medication with food. She denies rashes, jaundice, pruritus, melena, hematochezia, BRBPR, fevers, chills, diarrhea, or FH of IBD. She reports a paternal aunt and uncle as well as a maternal aunt and uncle diagnosed with colon cancer. The patient reports a total of 5 colonoscopies in [place] which were unremarkable. Her last procedure was about 2 years ago. She denies h/o colon polyps. multiple GI issues The patient p resents today secondary to multiple GI issues. Of note, she was diagnosed with H. pylori recently via a urea breath test. She was started on treatment with amoxicillina, clarithromycin and pantoprazole. She started this therapy about 1-2 days ago. In 05/2014, CMP, TSH and CBC were unremarkable. The patient was also diagnosed with H. pylori about 10 years ago in [place]. She states that she was treated at that time, and the bacteria was eradicated. The patient reports reflux symptoms despite being on pantoprazole BID. She reports taking aleve BID for fibromyalgia for months. However, she stopped this medication about 3 weeks ago. Her last EGD was about 10 years ago as noted above. The patient also reports signficant gas and bloating over the past month. She is not taking a probiotic or a fiber supplement. The patient also reports intermittent nausea and vomiting without hematemesis over the past month. Moreover, she reports intermittent dysphagia with solids over the past month. She denies weight loss, anorexia, oral lesions, odynophagia or regurgitation. Of note, the patient underwent a gastric bypass about 14 years ago, and a cholecystectomy in 2004. She reports intermittent epigastric abdominal pain as well. She is unable to identify any alleviating or aggravating factors. The pain is a cramping sensation as well as a spasm. She is not on an antispasmodic. The pain may last hours, and sometimes wakes her up at night. The patient has a h/o chronic constipation. She has tried miralax and metamucil, but these medications did not help. She received samples of linzess, and states that this does help. While taking this medication, she will have a BM daily. She denies rashes, jaundice, pruritus, melena, hematochezia, BRBPR, fevers, chills, diarrhea, or FH of IBD. She reports a paternal aunt and uncle as well as a maternal aunt and uncle diagnosed with colon cancer. The patient reports a total of 5 colonoscopies in [place] which were unremarkable. Her last procedure was about 2 years ago. She denies h/o colon polyps. Functional Status Date Functional Assessmen t No Information Instructions Date Instruction Additional Infor mation - Repeat colonoscopy in 2017 Rel ated to Family history of malignant neoplasm; gastrointestinal tract - Plan as above Related to Const ipation, unspecified - Urea breath test i n 4 weeks to check for eradication Related to Helicobacter pylori gastrointestinal infection - Increase Linzess t o 145mcg daily (was taking QOD). Discussed with patient that she needs to take this medication on an empty stomach and wait at least 30min prior to eating- Start daily probiotic- Simethicone prn- Continue dicyclomine prn- High fiber diet Related to IBS - Avoid NSAIDs- Anti -reflux measures discussed with the patient- Continue pantoprazole 40mg BID Related to GERD - Avoid NSAIDs- Anti -reflux measures discussed with the patient- Continue pantoprazole 40mg BID- Start daily probiotic- Continue bentyl prn - denies h/o glaucoma- Simethicone prn- If no improvement with the above, can check abdominal US Related to Abdominal pain; epigastric - Management per PCP Related to Obstructive sleep apnea - Plan as above Related to Const ipation, unspecified - Continue current t reatment (triple therapy) as noted above- Urea breath test 6-8 weeks after treatment to check for eradication Related to Helicobacter pylori gastrointestinal infection - Linzess 145mcg ankur ly- Plan as above under abdominal pain- High fiber diet Related to IBS - EGD to be schedule d. Risks, benefits and alternatives to the procedure were discussed with the patient. All questions were answered.- Avoid NSAIDs- Anti-reflux measures discussed with the patient- Continue pantoprazole 40mg BID Related to Nausea And Vomiting - EGD to be schedule d. Risks, benefits and alternatives to the procedure were discussed with the patient. All questions were answered.- Avoid NSAIDs- Anti-reflux measures discussed with the patient- Continue pantoprazole 40mg BID Related to GERD - EGD to be schedule d. Risks, benefits and alternatives to the procedure were discussed with the patient. All questions were answered.- Avoid NSAIDs- Anti-reflux measures discussed with the patient- Continue pantoprazole 40mg BID Related to Dysphagia, unspecified - EGD to be schedule d. Risks, benefits and alternatives to the procedure were discussed with the patient. All questions were answered.- Avoid NSAIDs- Anti-reflux measures discussed with the patient- Will assess for celiac disease with duodenal biopsies during the EGD- Continue current H. pylori treatment (amoxicillin, clarithromycin, pantoprazole0- Continue pantoprazole 40mg BID- Start daily probiotic- Trial of bentyl prn - denies h/o glaucoma- Simethicone prn Related to Abdominal pain; epigastric Assessments Type Assessment Date No Information Patient Care Teams Name Effective Dates (start - stop) Status Members No Information
--- OUTSIDE RECORDS SUMMARY | 2025-01-21 21:04 | XMS_ITS | Clinical Summary ---
Author Organization [facility] Address [address] [place] [address] Care Team Providers Care Music Supervisor Name Role Phone Angi Jara MD Primary Care Provider [phone] Allergies Active Allergy Reactions Criticality Noted Date Comments Fluoxetine Hives,Itching High 12/30/2018 Latex Itching Low 11/02/2023 Morphine Itching Low 06/02/2018 Tramadol Itching Low 06/02/2018 Medications QUEtiapine (SEROquel) 400 mg tablet TAKE 1 TABLET BY MOUTH ONCE DAILY AT BEDTIME FOR 30 DAYS 1 Active eszopiclone (LUNESTA) 3 mg Tablet Take 3 mg by mouth nightly as needed for Insomnia. Active gabapentin (NEURONTIN) 600 mg tablet Take 600 mg by mouth 3 times daily. 3 Active ALPRAZolam (XANAX) 1 mg tablet Take 1 mg by mouth 2 times daily. Active baclofen (LIORESAL) 20 mg tablet Take 2 Tablets by mouth 2 times daily. Active omeprazole (PriLOSEC) 20 mg Capsule, Delayed Release(E.C.) Take 20 mg by mouth daily. 3 Active DULoxetine (CYMBALTA) 30 mg Capsule, Delayed Release(E.C.) Starting 11/05: Take 1 Capsule (30 mg) by mouth daily. 30 Capsule 1 11/05/2023 6:17 PM PUBLIC RELATIONS ANALYST 4 Active albuterol sulfate HFA 90 mcg/actuation aerosol inhaler Take 2 Puffs by inhalation every 6 hours as needed for Wheezing or Shortness of Breath. 8.5 Gram Active Active Problems Problem Noted Date Diagnosed Date Hemoptysis 11/26/2023 Pneumonia due to infectious organism 11/26/2023 Precordial pain 11/26/2023 Generalized muscle weakness 11/04/2023 Leg swelling 11/04/2023 Chronic bilateral low back pain without sciatica 11/03/2023 Weakness of both lower extremities 11/03/2023 Chest pain 11/02/2023 Bilateral leg edema 11/02/2023 Nausea and vomiting 11/02/2023 Cough 11/02/2023 DM (diabetes mellitus), type 2 11/02/2023 HTN (hypertension), benign 11/02/2023 HLD (hyperlipidemia) 11/02/2023 Anxiety and depression 11/02/2023 Other dietary vitamin B12 deficiency anemia 01/30 Iron deficiency anemia 07/28/2018 Encounters Date Type Department Care Team Description 12/07/2024 External Device Data [facility] Provider, Abstract 11/23/2024 External Device Data [facility] Provider, Abstract 11/23/2024 External Device Data [facility] Provider, Abstract 11/10/2024 External Device Data [facility] Provider, Abstract 11/09/2024 External Device Data [facility] Provider, Abstract 11/02/2024 External Device Data [facility] Provider, Abstract 10/26/2024 External Device Data [facility] Provider, Abstract 10/26/2024 External Device Data [facility] Provider, Abstract 10/26/2024 External Device Data [facility] Provider, Abstract 10/25/2024 8:18 PM [facility] - 10/26/2024 3:10 AM [facility] Emergency [facility] Emergency Department [address] [place] [address] Rojelio Chapa MD Fitzpatrick, Brendan Michael, MD Mild intermittent reactive airway disease with wheezing with acute exacerbation (Primary Dx); Norovirus Discharge Disposition: Home or Self Care from Last 3 Months Family History Medical History Relation Name Comments Cancer Father Lung Cancer Mother Asthma Sister 1 Relation Name Status Comments Father Mother Alive Sister 1 Alive Sister 2 Alive Social History Tobacco Use Types Packs/Day Years Used Date Smoking Tobacco: Never Smokeless Tobacco: Never Alcohol Use Standard Drinks/Week Comments Yes 0 (1 standard drink = 0.6 oz pur e alcohol) marleen every other day Feeling Safe Answer Date Recorded Are you in a relationship wi th someone who hurts you emotionally and/or physically? No 10/25/2024 Food Insecurity Answer Date Recorded Social/Environmental Concerns No concerns Transportation Needs Answer Date Record ed Social/Environmental Concerns No concerns Housing Stability Answer Date Recorded Social/Environmental Concerns No concerns Utility Needs Answer Date Recorded Social/Environmental Concerns No concerns Comments No Sex and Gender Information Value Date Recorded Sex Assigned at Not on file Legal Sex Female 9:52 AM CDT Gender Identity Not on file Sexual Orientation Not on file Last Filed Vital Signs Vital Sign Reading Time Taken Comments Blood Pressure 145/82 10/26/2024 1:00 AM PUBLIC RELATIONS ANALYST Pulse 76 10/26/2024 1:00 AM PUBLIC RELATIONS ANALYST Temperature 36.6 C (97.9 F) 10/26/2024 1:00 AM PUBLIC RELATIONS ANALYST Respiratory Rate 20 10/26/2024 1:00 AM PUBLIC RELATIONS ANALYST Oxygen Saturation 98% 10/26/2024 1:00 AM PUBLIC RELATIONS ANALYST Inhaled Oxygen Concentration - - Weight 105.2 kg (232 lb) 10/25/2024 6:32 PM PUBLIC RELATIONS ANALYST Height 165.1 cm (5' 5 ) 10/25/2024 6:32 PM PUBLIC RELATIONS ANALYST Body Mass Index 38.61 10/25/2024 6:32 PM PUBLIC RELATIONS ANALYST Plan of Treatment Health Maintenance Due Date Last Done Comments DIABETES ANNUAL FOOT EXAM 01/30/1986 DIABETES ANNUAL RETINAL EXAM 01/30/1986 DIABETES MICROALBUMIN ANNUAL SCREEN 01/30/1986 LDL CHOLESTEROL ANNUAL 01/30/1986 DTAP/TDAP/TD VACCINES (1 - Tdap) 01/30/1987 HEPATITIS B VACCINES (1 of 3 - 19+ 3-dose series) 01/30/1987 BREAST CANCER SCREENING 2008 FIT-DNA Q 3 years 01/30/2013 FIT/FOBT Q 1 year 01/30/2013 Flex Sig/CT Colonography Q 5 years 01/30/2013 ZOSTER VACCINE (1 of 2) 01/30/2018 INFLUENZA VACCINE (#1) 2024 DIABETES HBA1C Q 6 MONTHS 05/04/2024 11/02/2023, COLORECTAL SCREENING 01/03/2031 01/03/2021 Colorectal Cancer Screening 01/03/2031 Procedures Procedure Name Priority Date/Time Associated Diagnosis Comments XR CHEST PA OR AP 1 VW Stat 11:01 PM PUBLIC RELATIONS ANALYST URINALYSIS W/REFLEX MICROSCOPIC Stat 10/25/2024 10:40 PM PUBLIC RELATIONS ANALYST GI PATHOGEN PCR PANEL Stat 10/25/2024 10:40 PM PUBLIC RELATIONS ANALYST XR ANKLE 3+ VW LEFT Stat 10/25/2024 8 :58 PM PUBLIC RELATIONS ANALYST BRAIN NATRIURETIC PEPTIDE, BNP OR PROBNP Stat 10/25/2024 8:30 PM PUBLIC RELATIONS ANALYST MAGNESIUM LEVEL Stat 10/25/2024 8:30 PM PUBLIC RELATIONS ANALYST COMPREHENSIVE METABOLIC PANEL Stat 10/25/2024 8:30 PM PUBLIC RELATIONS ANALYST CBC WITH DIFFERENTIAL Stat 10/25/2024 8:30 PM PUBLIC RELATIONS ANALYST EKG 12-LEAD Stat 10/25/2024 7:23 PM PUBLIC RELATIONS ANALYST INFLUENZA A/B, RSV AND COVID-19 PCR PANEL Stat 10/25/2024 6:39 PM PUBLIC RELATIONS ANALYST INFLUENZA A/B, RSV AND COVID-19 PCR PANEL Stat 10/25/2024 6:39 PM PUBLIC RELATIONS ANALYST HEMOGLOBIN A1C Routine 11/02/2023 4:04 AM PUBLIC RELATIONS ANALYST from Last 3 Months or Most Recently Relevant to Health Maintenance Results * XR CHEST PA OR AP 1 VW (10/25/2024 11:01 PM PUBLIC RELATIONS ANALYST) Anatomical Region Laterality Modality Chest Computed Radiogr aphy 10/25/2024 11:0 1 PM PUBLIC RELATIONS ANALYST Impressions 10/26/2024 6:59 AM PUBLIC RELATIONS ANALYST IMPRESSION: No evidence of an acute cardiopulmonary abnormality. DICTATION LOCATION: [facility] Narrative 10/26/2024 6:59 AM PUBLIC RELATIONS ANALYST EXAMINATION: AP chest radiograph DATE: 10/25/2024 11:01 PM HISTORY: Cough. COMPARISON: Chest radiograph from 11/29/2023. FINDINGS: The patient is rotated to the right. The lung volumes are low. There is no evidence of airspace consolidation, a pleural effusion, or a pneumothorax. The cardiomediastinal silhouette is normal. There are no acute osseous abnormalities. Procedure Note Kendall Harvey MD - 10/26/2024 EXAMINATION: AP chest radiograph DATE: 10/25/2024 11:01 PM HISTORY: Cough. COMPARISON: Chest radiograph from 11/29/2023. FINDINGS: The patient is rotated to the right. The lung volumes are low. There is no evidence of airspace consolidation, a pleural effusion, or a pneumothorax. The cardiomediastinal silhouette is normal. There are no acute osseous abnormalities. IMPRESSION: No evidence of an acute cardiopulmonary abnormality. DICTATION LOCATION: [facility] Rojelio Chapa MD DIAGNOSTIC IMAGING ORDERABLES Final Result * (ABNORMAL) GI PATHOGEN PCR PANEL (10/25/2024 10:40 PM PUBLIC RELATIONS ANALYST) Norovirus GI/GII by PCR DETECTED( A) Not Detected 10/26/2024 12:22 AM [facility] Stool STOOL SPECIMEN / Unknown Collection / Unknown 10/25/2024 10:40 PM PUBLIC RELATIONS ANALYST 10/25/2024 10:53 PM PUBLIC RELATIONS ANALYST Narrative [facility] - 10/26/2024 12:22 AM PUBLIC RELATIONS ANALYST The Film Array GI Panel is a multiplexed nucleic acid detection test for 22 targets of bacteria, viruses, and parasites in stool that cause infectious diarrhea. Bacteria: Campylobacter C. difficile Plesiomonas shigelloides Salmonella Vibrio Vibrio cholerae Yersinia enterocolitica Enteroaggregative E. Coli (EAEC) Enteropathogenic E. Coli (EPEC) Enterotoxigenic E. Coli (ETEC) Shiga-like toxin-producing E. Coli (STEC) E. Coli O157 Shigella/Enteroinvasive E. Coli (EIEC) Viruses: Adenovirus F 40/41 Astrovirus Norovirus GI/GII Rotavirus A Sapovirus Parasites: Cryptosporidium Cyclospora cayetanensis Entamoeba histolytica Giardia duodenalis Rojelio Chapa MD MICROBIOLOGY - GENERAL ORDERA BLES Final Result [facility] LABORATORY SERVICES [facility] CLIA# [id number] [address] [place] [address] * (ABNORMAL) URINALYSIS WITH REFLEX MICROSCOPIC (10/25/2024 10:40 PM PUBLIC RELATIONS ANALYST) COLOR UA Yellow Pale to Dark Yellow 10/25/2024 11:11 PM PUBLIC RELATIONS ANALYST [employer] LABORATORY SERVICES - [facility] CLARITY UA Cloudy(A) Clear 10/25/2024 11:11 PM PUBLIC RELATIONS ANALYST [employer] LABORATORY SERVICES - [facility] SPECIFIC GRAVITY UA 1.017 1.003 - 1.035 10/25/2024 11:11 PM [facility] [employer] LABORATORY [facility] PH UA 5.0 5.0 - 8.0 10/25/2024 11:11 PM PUBLIC RELATIONS ANALYST [employer] LABORATORY [facility] LEUKOCYTE ESTERASE UA Trace(A) Negative 10/25/2024 11:11 PM PUBLIC RELATIONS ANALYST [employer] LABORATORY SERVICES [facility] NITRITE UA Negative Negative 10/25/2024 11:11 PM [facility] [employer] LABORATORY SERVICES [facility] PROTEIN UA 1+(A) Negative 10/25/2024 11:11 PM [facility] GLUCOSE UA Negative Negative 10/25/2024 11:11 PM PUBLIC RELATIONS ANALYST [employer] LABORATORY SERVICES [facility] KETONES UA Negative Negative 10/25/2024 11:11 PM PUBLIC RELATIONS ANALYST [employer] LABORATORY [facility] UROBILINOGEN UA Normal <2.0 mg/dL 11:11 PM PUBLIC RELATIONS ANALYST [employer] LABORATORY SERVICES [facility] BILIRUBIN UA Negative Negative 10/25/2024 11:11 PM PUBLIC RELATIONS ANALYST [employer] LABORATORY [facility] BLOOD UA 1+(A) Negative 10/25/2024 11:11 PM PUBLIC RELATIONS ANALYST [employer] LABORATORY [facility] WBC UA 11-25(A) 0 - 2 /hpf 10/25/2024 11:11 PM PUBLIC RELATIONS ANALYST [employer] LABORATORY [facility] RBC UA 3-5(A) 0 - 2 /hpf 10/25/2024 11:11 PM PUBLIC RELATIONS ANALYST [facility] LABORATORY SERVICES - [facility] BACTERIA UA Negative Negative /hpf 10/25/2024 11:11 PM PUBLIC RELATIONS ANALYST [facility] EPITHELIAL CELLS, URINE 6-10(A) 0 - 5 /hpf 10/25/2024 11:11 PM PUBLIC RELATIONS ANALYST [facility] LABORATORY [facility] Urine URINE SPECIMEN OBTAINED BY CLEAN CATCH PROCEDURE / Unknown Collection / Unknown 10/25/2024 10:40 PM PUBLIC RELATIONS ANALYST 10/25/2024 10:53 PM PUBLIC RELATIONS ANALYST Rojelio Chapa MD URINE ORDERABLES Final Result [id number] [address] [place] [address] * XR ANKLE 3+ VW LEFT (10/25/2024 8:58 PM PUBLIC RELATIONS ANALYST) Anatomical Region Laterality Modality Ankle / Foot Computed Radiogr aphy 10/25/2024 9:00 PM PUBLIC RELATIONS ANALYST Impressions 10/25/2024 9:09 PM PUBLIC RELATIONS ANALYST IMPRESSION: 1. Soft tissue swelling. 2. No acute osseous abnormality. INCIDENTAL FINDINGS: None. DICTATION LOCATION: Location 1 - [facility] Narrative 10/25/2024 9:09 PM PUBLIC RELATIONS ANALYST XR ANKLE 3+ VW LEFT DATE: 10/25/2024 8:58 PM HISTORY: Injury. Pain after falling. Left ankle swelling. Comparison: None provided FINDINGS: No acute osseous abnormality. There is mild diffuse left lower leg and left ankle swelling. There is orthopedic hardware, intramedullary armond and distal screws within the visualized portion of the distal tibia. No evidence of hardware complication. Small calcaneal enthesophyte. Procedure Note Janae Childers MD - 10/25/2024 XR ANKLE 3+ VW LEFT DATE: 10/25/2024 8:58 PM HISTORY: Injury. Pain after falling. Left ankle swelling. Comparison: None provided FINDINGS: No acute osseous abnormality. There is mild diffuse left lower leg and left ankle swelling. There is orthopedic hardware, intramedullary armond and distal screws within the visualized portion of the distal tibia. No evidence of hardware complication. Small calcaneal enthesophyte. IMPRESSION: 1. Soft tissue swelling. 2. No acute osseous abnormality. INCIDENTAL FINDINGS: None. DICTATION LOCATION: Location 1 - [facility] Rojelio Chapa MD DIAGNOSTIC IMAGING ORDERABLES Final Result * (ABNORMAL) CBC WITH DIFFERENTIAL (10/25/2024 8:30 PM PUBLIC RELATIONS ANALYST) WBC 9.3 4.0 - 9.8 K/uL 10/25/2024 8:53 PM PUBLIC RELATIONS ANALYST [employer] LABORATORY SERVICES [facility] RBC 4.79 3.90 - 4.90 M/uL 10/25/2024 8:53 PM [facility] [employer] LABORATORY SERVICES [facility] HEMOGLOBIN 12.2 11.8 - 14.8 g/dL 10/25/2024 8:53 PM [facility] HEMATOCRIT 40.6 35.5 - 44.0 % 10/25/2024 8:53 PM PUBLIC RELATIONS ANALYST [employer] LABORATORY SERVICES [facility] MCV 84.8 82.0 - 99.0 fL 10/25/2024 8:53 PM [facility] MCH 25.5(L) 27.2 - 32.6 pg 10/25/2024 8:53 PM [facility] [employer] LABORATORY SERVICES [facility] MCHC 30.0(L) 31.5 - 35.5 g/dL 10/25/2024 8:53 PM [facility] RDW 18.3(H) 11.5 - 14.5 % 10/25/2024 8:53 PM PUBLIC RELATIONS ANALYST [facility] RDW-STDEV 54.8(H) 37.1 - 48.7 fL 10/25/2024 8:53 PM PUBLIC RELATIONS ANALYST [employer] LABORATORY SERVICES [facility] PLATELETS 368(H) 140 - 350 K/uL 10/25/2024 8:53 PM PUBLIC RELATIONS ANALYST [employer] LABORATORY SERVICES [facility] MPV 10.4 9.3 - 12.4 fL 10/25/2024 8:53 PM PUBLIC RELATIONS ANALYST [employer] LABORATORY SERVICES [facility] NEUTROPHILS 57 % 10/25/2024 8:53 PM PUBLIC RELATIONS ANALYST [employer] LABORATORY SERVICES [facility] LYMPHOCYTES 34 % 10/25/2024 8:53 PM PUBLIC RELATIONS ANALYST [employer] LABORATORY SERVICES - . [facility] MONOCYTES 6 % 10/25/2024 8:53 PM [facility] EOSINOPHILS 2 % 10/25/2024 8:53 PM [facility] BASOPHILS 0 % 10/25/2024 8:53 PM [facility] - [facility] IMMATURE GRANULOCYTES 1 % 10/25/2024 8:53 PM [facility] LABORATORY [facility] Comment:IG (Immature Granulo cyte) count includes Metamyelocytes, Myelocytes, and Promyelocytes NEUTROPHIL ABSOLUTE 5.33 1.90 - 7.00 K/uL 10/25/2024 8:53 PM [facility] [employer] [facility] - . [facility] LYMPHOCYTE ABSOLUTE 3.18 0.70 - 4.50 K/uL 10/25/2024 8:53 PM [facility] - . [facility] MONOCYTE ABSOLUTE 0.56 0.10 - 1.30 K/uL 10/25/2024 8:53 PM [facility] [employer] [facility] - . [facility] EOSINOPHIL ABSOLUTE 0.15 0.00 - 0.70 K/uL 10/25/2024 8:53 PM [facility] [employer] [facility] BASOPHILS ABSOLUTE 0.03 0.00 - 0.20 K/uL 10/25/2024 8:53 PM [facility] - . [facility] IMMATURE GRANULOCYTES ABSOLUTE 0.05(H) 0.00 - 0.03 K/uL 10/25/2024 8:53 PM [facility] [employer] [facility] Blood Venipuncture / Unknown 10/25/2024 8:30 PM PUBLIC RELATIONS ANALYST 10/25/2024 8:38 PM PUBLIC RELATIONS ANALYST us Rojelio Chapa MD HEMATOLOGY ORDERABLES Final R esult [facility] [employer] [facility]# [id number] [address] [facility] [address] [id number] * BRAIN NATRIURETIC PEPTIDE, BNP OR PROBNP (10/25/2024 8:30 PM PUBLIC RELATIONS ANALYST) PROBNP, N TERMINAL 39 <124 pg/mL 2024 12:33 AM [facility] [employer] [facility] Comment: INTERPRETIVE COMMENT based on diagnosis: Diagnostic NT pro-BNP cutoffs for Heart Failure in the absence of renal failure is suggested for the following ranges <75 years: <125 pg/mL >=75 years: <450 pg/mL Exclusionary rule out cut-point for Acute Decompensated Heart Failure(ADHF) All ages: <300 pg/mL Diagnostic NT pro-BNP cutoffs for Acute Decompensated Heart Failure(ADHF) in the absence of renal failure is suggested for the following ages <50 years: > 450 pg/mL 50-75 years: > 900 pg/mL >75 years: >1800 pg/mL Blood Venipuncture / Unknown 10/25/2024 8:30 PM PUBLIC RELATIONS ANALYST 10/25/2024 8:38 PM PUBLIC RELATIONS ANALYST Jose Antonio Valdes MD CHEMISTRY ORDERAB LES Final Result Performing Organization Address [facility]/ZIP Co de Phone Number [facility] [employer] [facility] CLIA# [id number] [address] [place] [address] * MAGNESIUM LEVEL (10/25/2024 8:30 PM PUBLIC RELATIONS ANALYST) MAGNESIUM 2.4 1.6 - 2.6 mg/dL 10/25/2024 9:32 PM [facility] Blood Venipuncture / Unknown 10/25/2024 8:30 PM PUBLIC RELATIONS ANALYST 10/25/2024 8:38 PM PUBLIC RELATIONS ANALYST Rojelio Chapa MD CHEMISTRY ORDERABLES Final Re sult [facility] [employer] [facility] CLIA# [id number] [address] [place] [address] * (ABNORMAL) COMPREHENSIVE METABOLIC PANEL (10/25/2024 8:30 PM PUBLIC RELATIONS ANALYST) SODIUM 139 136 - 145 mmol/L 10/25/2024 9:32 PM PUBLIC RELATIONS ANALYST [email or web address] [facility] POTASSIUM 10/25/2024 9:32 PM PUBLIC RELATIONS ANALYST [email or web address] [facility] Comment: Test cannot be performed. Sample hemolysis interference above limits. Redraw if indicated. Notified RN Vanessa (Triage) CHLORIDE 104 98 - 107 mmol/L 10/25/2024 9:32 PM [facility] LABORATORY [facility] CO2 23 22 - 29 mmol/L 10/25/2024 9:32 PM [facility] LABORATORY [facility] CALCIUM 9.2 8.6 - 10.2 mg/dL 10/25/2024 9:32 PM [facility] LABORATORY [facility] BUN 16 6 - 20 mg/dL 10/25/2024 9:32 PM [facility] LABORATORY [facility] CREATININE 0.88 0.51 - 0.95 mg/dL 10/25/2024 9:32 PM [facility] LABORATORY [facility] GLUCOSE 97 74 - 99 mg/dL 10/25/2024 9:32 PM [facility] LABORATORY [facility] TOTAL PROTEIN 7.6 6.7 - 8.6 g/dL 10/25/2024 9:32 PM [facility] LABORATORY [facility] ALBUMIN 3.9 3.5 - 5.2 g/dL 10/25/2024 9:32 PM [facility] LABORATORY [facility] BILIRUBIN TOTAL <0.2(L) 0.3 - 1.2 mg/dL 10/25/2024 9:32 PM [facility] LABORATORY [facility] ALKALINE PHOSPHATASE 10/25/2024 9:32 PM [facility] LAB[facility] Comment:Test cannot be perfo rmed. Sample hemolysis interference above limits. Redraw if indicated. AST 10/25/2024 9:32 PM [facility] LABORATORY [facility] Comment:Test cannot be perfo rmed. Sample hemolysis interference above limits. Redraw if indicated. ALT 10/25/2024 9:32 PM [facility] LABORATORY [facility] Comment:Test cannot be perfo rmed. Sample hemolysis interference above limits. Redraw if indicated. GFR >60 >=60 mL/min/1. 73 sq meter 10/25/2024 9:32 PM [facility] LABORATORY [facility] Comment:eGFR calculated with 2020 CKD-EPI equation. Vegetarian diet, extremely high or low muscle mass, and may affect results. Cystatin C with Glomerular Filtration Rate is a suitable alternative for these patients. ANION GAP 12 8 - 16 mmol/L 10/25/2024 9:32 [address] PUBLIC RELATIONS ANALYST [facility] Blood Venipuncture / Unknown 10/25/2024 8:30 PM PUBLIC RELATIONS ANALYST 10/25/2024 8:38 PM PUBLIC RELATIONS ANALYST Narrative [facility] - 10/25/2024 9:32 PM PUBLIC RELATIONS ANALYST Samples containing indocyanine green cause interferences on Total and/or Direct Bilirubin and must not be measured. us Rojelio Chapa MD CHEMISTRY ORDERABLES Final Re sult [facility] CLIA# [id number] [address] [place] [address] [place] [address] * EKG 12-LEAD (10/25/2024 7:23 PM PUBLIC RELATIONS ANALYST) 10/25/2024 7:23 PM PUBLIC RELATIONS ANALYST Narrative INTERFACE SYSTEM - 10/26/2024 3:04 PM [place] [address] Test Date: 2024-10-25 Pat Name: DINA HAMILTON Department: 40 Room: 03 Gender: Female Supply Officer: [id number] : 1970 Requested By: Order Number: [id number] Reading MD: Quincy Flannery Measurements Intervals [place] Rate: 86 P: 35 ID: [id number] QRS: 32 QRSD: 94 T: 45 QT: 367 QTc: 439 Interpretive Statements Sinus rhythm Consider left atrial enlargement Electronically Signed On 10-26-2024 15:04:57 PUBLIC RELATIONS ANALYST by Quincy Flannery Procedure Note Quincy Flannery MD - 10/26/2024 [place] [address] Test Date: 2024-10-25 Pat Name: DINA HAMILTON Department: 40 Room: 03 Gender: Female Supply Officer: [id number] : 1970 Requested By: Order Number: [id number] Reading MD: Quincy Flannery Measurements Intervals [place] Rate: 86 P: 35 ID: [id number] QRS: 32 QRSD: 94 T: 45 QT: 367 QTc: 439 Interpretive Statements Sinus rhythm Consider left atrial enlargement Electronically Signed On 10-26-2024 15:04:57 PUBLIC RELATIONS ANALYST by Quincy Flannery Rojelio Chapa MD ECG ORDERABLES Final Result Performing Organization Address City/[facility]/ZIP Co de Phone Number INTERFACE SYSTEM Refer to clinic/hospital department * INFLUENZA A/B, RSV AND COVID-19 PCR PANEL (10/25/2024 6:39 PM PUBLIC RELATIONS ANALYST) Pathologist [facility] COVID-19 PCR NOT DETECTED Not Detected 10/25/19 8:09 PM PUBLIC RELATIONS ANALYST [facility] Influenza A by PCR NOT DETECTED Not Detected 10/25/2024 8:09 PM PUBLIC RELATIONS ANALYST [facility] [employer] [facility] Influenza B by PCR NOT DETECTED Not Detected 10/25/2024 8:09 PM PUBLIC RELATIONS ANALYST [facility] [employer] [facility] RSV by PCR NOT DETECTED Not Detected 10/25/2024 8:09 PM PUBLIC RELATIONS ANALYST [facility] [employer] [facility] Upper Respiratory ENTIRE NASOPHARYNX / Unknown Collection / Unknown 10/25/2024 6:39 PM PUBLIC RELATIONS ANALYST 10/25/2024 6:52 PM PUBLIC RELATIONS ANALYST [facility] LABORATORY [facility] - 10/25/2024 8:09 PM PUBLIC RELATIONS ANALYST This test has been authorized by the FDA under an Emergency Use Authorization for use by authorized laboratories. This test has been validated in accordance with the FDA's guidance regarding Coronavirus Disease-2019 testing. Optimum specimen types and timing for peak viral levels during infection have not been determined. A negative RT-PCR result does not rule out infection with the 2019-Novel Coronavirus. Rojelio Chapa MD MICROBIOLOGY - GENERAL ORDERA BLES Final Result Performing Organization Address City/[facility]/ZIP Co de Phone Number [facility] [employer] [facility] CLIA# [id number] [address] [place] [address] * HEMOGLOBIN A1C (11/02/2023 4:04 AM PUBLIC RELATIONS ANALYST) HEMOGLOBIN A1C 5.6 <5.7 % 11/02/2023 10:11 AM [facility] [employer] [facility] EST. AVG GLUCOSE, A1C 114 mg/dL 11/02/2023 10:11 AM [facility] [employer] [facility] Blood Venipuncture / Unknown 11/02/2023 4:04 AM PUBLIC RELATIONS ANALYST 11/02/2023 4:10 AM PUBLIC RELATIONS ANALYST Narrative [facility] - 11/02/2023 10:11 AM PUBLIC RELATIONS ANALYST HGB A1C INTERPRETATION NORMAL: <5.7% PRE-DIABETES: 5.7 - 6.4% DIABETES: 6.5% OR GREATER Delaney Cardona DO CHEMISTRY ORDERABLES F inal Result [facility] [employer] [facility] CLIA# [id number] [address] [place] [address] from Last 3 Months or Most Recently Relevant to Health Maintenance Insurance MEDICAID [place] RX [employer] RX Member Subscriber Plan / Payer (Ef fective for All Dates) Name:Dina Hamilton Relation to Subscriber:Self Name:Dina Hamilton Payer ID:Not on file Group ID:[id number] Type:RX Commercial Address: [employer]INTERNAL) [facility] Advance Directives For more information, please contact: [phone] * Full Code (Latest Code Status on File) Date Activated Date Inactivated Comments 11/26/2023 11:17 PM 12/02/2023 12:18 AM * Full Code Date Activated Date Inactivated Comments 11/02/2023 8:40 AM 11/05/2023 8:51 PM Care Teams Music Supervisor Relationship Specialty Start Date End Date Angi Jara MD [address] [place] [address] PCP - General Internal Medicine 11/02/23
--- OUTSIDE RECORDS SUMMARY | 2025-01-21 21:04 | XMS_ITS | Continuity of Care Document ---
Author Name Jayant Salguero Address [address] [facility] [place] [address] Organization Unknown Address [address] [place] [address] [address] [place] [address] Medications No known medications Problems No known problems
--- OUTSIDE RECORDS SUMMARY | 2025-01-21 21:04 | XMS_ITS | Continuity of Care Document ---
Author Name Flor Lopez Address [address] [facility] [place] [address] Organization Unknown Address [address] [place], [place] [id number] [place] [address] Medications No known medications Problems No known problems
--- OUTSIDE RECORDS SUMMARY | 2025-01-21 21:04 | XMS_ITS | Continuity of Care Document ---
Author Name Radha Brambila Address [address] [place], [place] [id number] [place] [address] Organization Unknown Address [address] [place], [place] [id number] [place] [address] Medications No known medications Problems No known problems
--- OUTSIDE RECORDS SUMMARY | 2025-01-21 21:04 | XMS_ITS | Continuity of Care Document ---
Author Name Alka Bernardo Address [address] [place], [place] [id number] [place] [address] Organization Unknown Address [address] [place] [address] Medications No known medications Problems No known problems
--- OUTSIDE RECORDS SUMMARY | 2025-01-21 21:04 | XMS_ITS | Continuity of Care Document ---
Author Name Oracio Alfonso Address [address] [place] [id number] Organization Unknown Address [address] [place] [address] Medications No known medications Problems No known problems
--- OUTSIDE RECORDS SUMMARY | 2025-01-21 21:04 | XMS_ITS | Clinical Summary ---
Author Organization [facility] Address [address] [place], [address] [address] Phone Care Team Providers Care Obstetrics Teacher Name Role Phone Roman Chen MD Primary Care Provider [phone] Allergies Active Allergy Reactions Criticality Noted Date Comments Morphine Other (see Comments) Medium 12/30/2018 Itching and makes eyes feel funny Fluoxetine Hives,Itching Medium 12/30/2018 Tramadol Other (see Comments) Medium 12/30/2018 Itching and makes eyes feel funny Medications otherIndication s:IRON infusion by Other route every 30 days. Indications: IRON infusion Active Cyanocobalamin (VITAMIN B 12 PO) by Intramuscular route every 30 days. Active cyclobenzaprine (FLEXERIL) 10 MG Tablet Take 10 mg by mouth 2 times daily. Active pregabalin (LYRICA) 150 MG Capsule Take 150 mg by mouth 3 times daily. Active celecoxib (CELEBREX) 200 MG Capsule Take 200 mg by mouth 2 times daily. Active zolpidem (AMBIEN) 10 MG Tablet Take 10 mg by mouth nightly as needed. Active ALPRAZolam (XANAX) 0.5 MG Tablet Take 0.5 mg by mouth 3 times daily as needed. Active butalbital-aspi rin-caffeine (FIORINAL) 50-325-40 MG Capsule Take 1 Cap by mouth every 4 hours as needed. Active escitalopram (LEXAPRO) 20 MG Tablet Take 20 mg by mouth daily. 0 Active QUEtiapine Fumarate 400 MG Tablet Take 400 mg by mouth daily. 1 Active sucralfate (CARAFATE) 1 GM TabletIndicatio ns:Gastroesopha geal reflux disease, unspecified whether esophagitis present Take 1 Tablet by mouth 4 times daily. 120 Tablet 2 1 Active omeprazole (PriLOSEC) 20 MG CAPSULE DELAYED RELEASEIndicati ons:Gastroesoph ageal reflux disease, unspecified whether esophagitis present Take 1 Capsule by mouth 2 times daily. 180 Capsule 1 1 Active ergocalciferol (VITAMIN D) 37200 UNIT Capsule Take one capsule by mouth once a week for 12 weeks. 12 Capsule 1 1 Active Active Problems Problem Noted Date Diagnosed Date Vitamin D deficiency 11/29/2020 Iron deficiency anemia 11/29/2020 Family History Medical History Relation Name Comments Cancer Father ?, in back Diabetes Maternal Aunt Cancer Maternal Uncle colon Diabetes Maternal Uncle Cancer Mother lung Diabetes Paternal Aunt Cancer Paternal Uncle colon Diabetes Paternal Uncle Relation Name Status Comments Father Maternal Aunt Maternal Uncle Mother Alive Paternal Aunt Paternal Uncle Social History Tobacco Use Types Packs/Day Years Used Date Smoking Tobacco: Never Smokeless Tobacco: Never Alcohol Use Standard Drinks/Week Comments Yes 1 (1 standard drink = 0.6 oz pur e alcohol) social Sexually Active Control Partners Comments Not Currently Comments No Sex and Gender Information Value Date Recorded Sex Assigned at Not on file Legal Sex Female 9:03 AM CDT Gender Identity Not on file Sexual Orientation Not on file Last Filed Vital Signs Vital Sign Reading Time Taken Comments Blood Pressure 114/70 11/29/2020 9:16 AM CDT Pulse 87 11/29/2020 9:16 AM CDT Temperature 36.7 C (98.1 F) 11/29/2020 9:16 AM CDT Respiratory Rate 10 11/29/2020 9:16 AM CDT Oxygen Saturation 96% 11/29/2020 9:16 AM CDT Inhaled Oxygen Concentration - - Weight 100.1 kg (220 lb 9.6 oz) 11/29/2020 9:16 AM CDT Height 165.1 cm (5' 5 ) 11/29/2020 9:16 AM CDT Body Mass Index 36.71 11/29/2020 9:16 AM CDT Plan of Treatment Health Maintenance Due Date Last Done Comments Hepatitis C Virus (HCV) Screening 1970 TdaP Immunization 1970 Hepatitis B Immunization (1 of 3 - 19+ 3-dose series) 01/30/1987 Cologuard 01/30/2018 Immunochemical Fecal Occult Blood 01/30/2018 Pneumococcal Immunization (5 0+ years) (1 of 1 - PCV) 01/30/2018 Zoster Immunization (1 of 2) 01/30/2018 Influenza Immunization (#1) 2024 SARS-COV-2 Immunization ( - season) 2024 Colonoscopy 01/03/2031 01/03/2021, 01/13/2019, 10/02/2017 Colorectal Cancer Screening 01/03/2031 Respiratory Syncytial Virus (RSV) Immunization (Adult) (1 - 1-dose 75+ series) 01/30/2043 01/03/2021, 01/13/2019, 10/02/2017 Meningococcal Immunization (ACWY) Aged Out No longer eligible b ased on patient's age to complete this topic Rotavirus Immunization Aged Out No lo nger eligible based on patient's age to complete this topic Procedures Procedure Name Priority Date/Time Associated Diagnosis Comments COLONOSCOPY Routine 01/03/2021 from Last 3 Months or Most Recently Relevant to Health Maintenance Results * HM COLONOSCOPY (01/03/2021) Lex Delgadillo DO PROCEDURE/MINOR SURGICAL ORDERA BLES Final Result from Last 3 Months or Most Recently Relevant to Health Maintenance Insurance [facility] Care Teams Obstetrics Teacher Relationship Specialty Start Date End Date Roman Chen MD [address] [facility] [place] [address] PCP - General Family Medicine 01/05/19
--- OUTSIDE RECORDS SUMMARY | 2025-01-21 21:04 | XMS_ITS | Continuity of Care Document ---
Author Name Oracio Alfonso Address [address] [facility] [place] [address] Organization Unknown Address [address] [place] [address] [address] [place] [address] Problems No known problems
[2025-01-21 21:17] VITALS: PULSE 95; RESP 15; O2SAT 100
[2025-01-21 21:21] VITALS: PULSE 93
[2025-01-21 21:30] VITALS: BP 131/85
[2025-01-21 21:30] LABS: Basophils Percent Auto 0.4 % (0.2-1.2); Eosinophils Absolute Auto 0.2 K/mm3 (0-0.3); Eosinophils Percent Auto 2.8 % (0-4.4); Hematocrit 41.7 % (37.0-47.0); Hemoglobin 12.5 g/dL (12.0-15.0); Immature Granulocyte Absolute 0.02 K/mm3 (0.00-0.031); Immature Granulocyte Percent A 0.3 % (0-0.5); Lymphocytes Absolute Auto 2.98 K/mm3 (0.9-3.2); Mean Corpuscular Hemoglobin 25.8 pg (26-34); Mean Platelet Volume 10.3 fl (7.4-10.4); Monocytes Absolute Auto 0.5 K/mm3 (0.1-0.6); Monocytes Percent Auto 7.1 % (2.6-8.5); Neutrophils Absolute Auto 3.1 K/mm3 (1.3-6.7); Neutrophils Percent Auto 45.4 % (45.5-73.1); Platelet Count Result 297 k/mm3 (150-375); Red Blood Count 4.85 M/mm3 (4.2-5.4); Red Cell Distribution Width 16.3 % (11.5-14.5); White Blood Count 6.8 K/mm3 (4.5-10.0)
[2025-01-21 21:36] VITALS: O2SAT 99
[2025-01-21 21:41] LABS: Alanine Aminotransferase 31 U/L (6-35); Albumin Level 4.2 g/dL (3.5-5.1); Alkaline Phosphatase 113 U/L (38-126); Anion Gap 9 mmol/L (4-12); Aspartate Amino Transferase 33 U/L (14-36); Bilirubin,Total 0.5 mg/dL (0.2-1.3); Blood Urea Nitrogen 18 mg/dL (7-17); Calcium 8.7 mg/dL (8.4-10.2); Carbon Dioxide 26 mmol/L (22-30); Chloride 105 mmol/L (98-107); Estimated CRCL calculation 59 ml/min; Estimated Glomerular Filt Rate 49; Glucose 122 mg/dL (65-110); Lipase 45 U/L (23-300); Potassium 3.8 mmol/L (3.4-5.0); Sodium 140 mmol/L (137-145)
[2025-01-21 21:43] LABS: Partial Thromboplastin Time 31.8 Seconds (22.3-36.8)
[2025-01-21 21:53] LABS: Troponin I < 0.012 ng/mL (0.000-0.034)
--- OUTSIDE RECORDS SUMMARY | 2025-01-21 22:05 | XMS_ITS | Clinical Summary ---
Author Organization [facility] Address [address] [address] Care Team Providers Care Wide Area Network Engineer Name Role Phone Angi Jara MD Primary Care Provider [phone] Allergies Active Allergy Reactions Criticality Noted Date [...] daily. 30 Capsule 1 11/05/2023 6:17 PM MATE CHIEF 4 Active albuterol sulfate HFA 90 mcg/actuation [...] STL ABSTRACTION Provider, Abstract 10/25/2024 8:18 PM [facility]/26/2024 3:10 AM [facility] Emergency Department [address] [place] [address] Rojelio Chapa MD Fitzpatrick, Brendan Michael, MD [...] Comments Blood Pressure 145/82 10/26/2024 1:00 AM MATE CHIEF Pulse 76 10/26/2024 1:00 AM MATE CHIEF Temperature 36.6 C (97.9 F) 10/26/2024 1:00 AM MATE CHIEF Respiratory Rate 20 10/26/2024 1:00 AM MATE CHIEF Oxygen Saturation 98% 10/26/2024 1:00 AM MATE CHIEF Inhaled Oxygen Concentration - - Weight 105.2 kg (232 lb) 10/25/2024 6:32 PM MATE CHIEF Height 165.1 cm (5' 5 ) 10/25/2024 6:32 PM MATE CHIEF Body Mass Index 38.61 10/25/2024 6:32 PM MATE CHIEF Plan of Treatment Health Maintenance Due Date [...] OR AP 1 VW Stat 11:01 PM MATE CHIEF URINALYSIS W/REFLEX MICROSCOPIC Stat 10/25/2024 10:40 PM MATE CHIEF GI PATHOGEN PCR PANEL Stat 10/25/2024 10:40 PM MATE CHIEF XR ANKLE 3+ VW LEFT Stat 10/25/2024 8 :58 PM MATE CHIEF BRAIN NATRIURETIC PEPTIDE, BNP OR PROBNP Stat 10/25/2024 8:30 PM MATE CHIEF MAGNESIUM LEVEL Stat 10/25/2024 8:30 PM MATE CHIEF COMPREHENSIVE METABOLIC PANEL Stat 10/25/2024 8:30 PM MATE CHIEF CBC WITH DIFFERENTIAL Stat 10/25/2024 8:30 PM MATE CHIEF EKG 12-LEAD Stat 10/25/2024 7:23 PM MATE CHIEF INFLUENZA A/B, RSV AND COVID-19 PCR PANEL Stat 10/25/2024 6:39 PM MATE CHIEF INFLUENZA A/B, RSV AND COVID-19 PCR PANEL Stat 10/25/2024 6:39 PM MATE CHIEF HEMOGLOBIN A1C Routine 11/02/2023 4:04 AM MATE CHIEF from Last 3 Months or Most Recently Relevant to Health Maintenance Results * XR CHEST PA OR AP 1 VW (10/25/2024 11:01 PM MATE CHIEF) Anatomical Region Laterality Modality Chest Computed Radiogr aphy 10/25/2024 11:0 1 PM MATE CHIEF Impressions 10/26/2024 6:59 AM MATE CHIEF IMPRESSION: No evidence of an acute cardiopulmonary abnormality. DICTATION LOCATION: [facility] Narrative 10/26/2024 6:59 AM MATE CHIEF EXAMINATION: AP chest radiograph DATE: 10/25/2024 11:01 [...] of an acute cardiopulmonary abnormality. DICTATION LOCATION: [facility] Rojelio Chapa MD DIAGNOSTIC IMAGING ORDERABLES Final Result * (ABNORMAL) GI PATHOGEN PCR PANEL (10/25/2024 10:40 PM MATE CHIEF) Norovirus GI/GII by PCR DETECTED( A) Not Detected 10/26/2024 12:22 AM [facility] Stool STOOL SPECIMEN / Unknown Collection / Unknown 10/25/2024 10:40 PM MATE CHIEF 10/25/2024 10:53 PM MATE CHIEF Narrative [facility] - 10/26/2024 12:22 AM MATE CHIEF The Film Array GI Panel is a [...] MICROBIOLOGY - GENERAL ORDERA BLES Final Result [facility] LABORATORY SERVICES [facility] CLIA# [id number] [address] [place] [address] * (ABNORMAL) URINALYSIS WITH REFLEX MICROSCOPIC (10/25/2024 10:40 PM MATE CHIEF) COLOR UA Yellow Pale to Dark Yellow 10/25/2024 11:11 PM MATE CHIEF [employer] LABORATORY SERVICES - [facility] CLARITY UA Cloudy(A) Clear 10/25/2024 11:11 PM MATE CHIEF [employer] LABORATORY SERVICES - [facility] SPECIFIC GRAVITY UA 1.017 1.003 - 1.035 10/25/2024 11:11 PM [facility] [employer] LABORATORY [facility] PH UA 5.0 5.0 - 8.0 10/25/2024 11:11 PM MATE CHIEF [employer] LABORATORY [facility] LEUKOCYTE ESTERASE UA Trace(A) Negative 10/25/2024 11:11 PM MATE CHIEF [employer] LABORATORY SERVICES [facility] NITRITE UA Negative Negative 10/25/2024 11:11 PM [facility] [employer] LABORATORY SERVICES [facility] PROTEIN UA 1+(A) Negative 10/25/2024 11:11 PM [facility] GLUCOSE UA Negative Negative 10/25/2024 11:11 PM MATE CHIEF [employer] LABORATORY SERVICES [facility] KETONES UA Negative Negative 10/25/2024 11:11 PM MATE CHIEF [employer] LABORATORY [facility] UROBILINOGEN UA Normal <2.0 mg/dL 11:11 PM MATE CHIEF [employer] LABORATORY SERVICES [facility] BILIRUBIN UA Negative Negative 10/25/2024 11:11 PM MATE CHIEF [employer] LABORATORY [facility] BLOOD UA 1+(A) Negative 10/25/2024 11:11 PM MATE CHIEF [employer] LABORATORY [facility] WBC UA 11-25(A) 0 - 2 /hpf 10/25/2024 11:11 PM MATE CHIEF [employer] LABORATORY [facility] RBC UA 3-5(A) 0 - 2 /hpf 10/25/2024 11:11 PM MATE CHIEF [facility] LABORATORY SERVICES - [facility] BACTERIA UA Negative Negative /hpf 10/25/2024 11:[address] [facility] - [facility] EPITHELIAL CELLS, URINE 6-10(A) 0 - 5 /hpf 10/25/2024 11:11 PM MATE CHIEF [facility] LABORATORY [facility] - [facility] Urine URINE SPECIMEN OBTAINED BY CLEAN CATCH PROCEDURE / Unknown Collection / Unknown 10/25/2024 10:40 PM MATE CHIEF 10/25/2024 10:53 PM MATE CHIEF Rojelio Chapa MD URINE ORDERABLES Final Result [id number] [address] [place] [address] * XR ANKLE 3+ VW LEFT (10/25/2024 8:58 PM MATE CHIEF) Anatomical Region Laterality Modality Ankle / Foot Computed Radiogr aphy 10/25/2024 9:00 PM MATE CHIEF Impressions 10/25/2024 9:09 PM MATE CHIEF IMPRESSION: 1. Soft tissue swelling. 2. No acute osseous abnormality. INCIDENTAL FINDINGS: None. DICTATION LOCATION: Location 1 - [facility] Narrative 10/25/2024 9:09 PM MATE CHIEF XR ANKLE 3+ VW LEFT DATE: 10/25/2024 [...] FINDINGS: None. DICTATION LOCATION: Location 1 - [facility] Rojelio Chapa MD DIAGNOSTIC IMAGING ORDERABLES Final Result * (ABNORMAL) CBC WITH DIFFERENTIAL (10/25/2024 8:30 PM MATE CHIEF) WBC 9.3 4.0 - 9.8 K/uL 10/25/2024 8:53 PM MATE CHIEF [employer] LABORATORY SERVICES [facility] RBC 4.79 3.90 - 4.90 M/uL 10/25/2024 8:53 PM [facility] [employer] LABORATORY SERVICES [facility] HEMOGLOBIN 12.2 11.8 - 14.8 g/dL 10/25/2024 8:53 PM [facility] HEMATOCRIT 40.6 35.5 - 44.0 % 10/25/2024 8:53 PM MATE CHIEF [employer] LABORATORY SERVICES [facility] MCV 84.8 82.0 - 99.0 fL 10/25/2024 8:53 PM [facility] MCH 25.5(L) 27.2 - 32.6 pg 10/25/2024 8:53 PM [facility] [employer] LABORATORY SERVICES [facility] MCHC 30.0(L) 31.5 - 35.5 g/dL 10/25/2024 8:53 PM [facility] SERVICES [facility] RDW 18.3(H) 11.5 - 14.5 % 10/25/2024 8:53 PM [facility] CHIEF [facility] RDW-STDEV 54.8(H) 37.1 - 48.7 fL 10/25/2024 8:53 PM MATE CHIEF [employer] LABORATORY SERVICES [facility] PLATELETS 368(H) 140 - 350 K/uL 10/25/2024 8:53 PM MATE CHIEF [employer] LABORATORY SERVICES [facility] MPV 10.4 9.3 - 12.4 fL 10/25/2024 8:53 PM MATE CHIEF [employer] LABORATORY SERVICES [facility] NEUTROPHILS 57 % 10/25/2024 8:53 PM MATE CHIEF [employer] LABORATORY SERVICES [facility] LYMPHOCYTES 34 % 10/25/2024 8:53 PM MATE CHIEF [employer] LABORATORY SERVICES - . [facility] MONOCYTES 6 % 10/25/2024 8:53 PM [facility] EOSINOPHILS 2 % 10/25/2024 8:53 PM [facility] BASOPHILS 0 % 10/25/2024 8:53 PM [facility] - [facility] IMMATURE GRANULOCYTES 1 % 10/25/2024 8:53 PM [facility] LABORATORY [facility] Comment:IG (Immature Granulo cyte) count includes Metamyelocytes, Myelocytes, and Promyelocytes NEUTROPHIL ABSOLUTE 5.33 1.90 - 7.00 K/uL 10/25/2024 8:53 PM [facility] [employer] [facility] - . [facility] LYMPHOCYTE ABSOLUTE 3.18 0.70 - 4.50 K/uL 10/25/2024 8:53 PM [facility] - [facility] MONOCYTE ABSOLUTE 0.56 0.10 - 1.30 K/uL 10/25/2024 8:53 PM [facility] [employer] [facility] - . [facility] EOSINOPHIL ABSOLUTE 0.15 0.00 - 0.70 K/uL 10/25/2024 8:53 PM [facility] [employer] [facility] BASOPHILS ABSOLUTE 0.03 0.00 - 0.20 K/uL 10/25/2024 8:53 PM [facility] - [facility] IMMATURE GRANULOCYTES ABSOLUTE 0.05(H) 0.00 - 0.03 K/uL 10/25/2024 8:53 PM [facility] [employer] [facility]. [facility] Blood Venipuncture / Unknown 10/25/2024 8:30 PM MATE CHIEF 10/25/2024 8:38 PM MATE CHIEF us Rojelio Chapa MD HEMATOLOGY ORDERABLES Final R esult [facility] [employer] [facility]# [id number] 5 [facility] [place] [address] [address] * BRAIN NATRIURETIC PEPTIDE, BNP OR PROBNP (10/25/2024 8:30 PM MATE CHIEF) PROBNP, N TERMINAL 39 <124 pg/mL 2024 12:33 AM [facility] [employer] [facility] Comment: INTERPRETIVE COMMENT based on diagnosis: [...] Blood Venipuncture / Unknown 10/25/2024 8:30 PM MATE CHIEF 10/25/2024 8:38 PM MATE CHIEF Jose Antonio Valdes MD CHEMISTRY ORDERAB LES Final Result Performing Organization Address [facility]/ZIP Co de Phone Number [facility] [employer] [facility] CLIA# [id number] [address] [place] [address] * MAGNESIUM LEVEL (10/25/2024 8:30 PM MATE CHIEF) MAGNESIUM 2.4 1.6 - 2.6 mg/dL 10/25/2024 9:32 PM [facility] Blood Venipuncture / Unknown 10/25/2024 8:30 PM MATE CHIEF 10/25/2024 8:38 PM MATE CHIEF Rojelio Chapa MD CHEMISTRY ORDERABLES Final Re sult [facility] [employer] [facility] CLIA# [id number] [address] [place] [address] * (ABNORMAL) COMPREHENSIVE METABOLIC PANEL (10/25/2024 8:30 PM MATE CHIEF) SODIUM 139 136 - 145 mmol/L 10/25/2024 9:32 PM MATE CHIEF [employer] [facility] POTASSIUM 10/25/2024 9:32 PM MATE CHIEF [employer] [facility] Comment: Test cannot be performed. Sample hemolysis interference above limits. Redraw if indicated. Notified RN Vanessa (Triage) CHLORIDE 104 98 - 107 mmol/L 10/25/2024 9:32 PM [facility] CO2 23 22 - 29 mmol/L 10/25/2024 9:32 PM [facility] CALCIUM 9.2 8.6 - 10.2 mg/dL 10/25/2024 9:32 PM [facility] BUN 16 6 - 20 mg/dL 10/25/2024 9:32 PM [facility] CREATININE 0.88 0.51 - 0.95 mg/dL 10/25/2024 9:32 PM [facility] GLUCOSE 97 74 - 99 mg/dL 10/25/2024 9:32 PM [facility] TOTAL PROTEIN 7.6 6.7 - 8.6 g/dL 10/25/2024 9:32 PM [facility] ALBUMIN 3.9 3.5 - 5.2 g/dL 10/25/2024 9:32 PM [facility] BILIRUBIN TOTAL <0.2(L) 0.3 - 1.2 mg/dL 10/25/2024 9:32 PM [facility] ALKALINE PHOSPHATASE 10/25/2024 9:32 PM [facility] Comment:Test cannot be perfo rmed. Sample hemolysis interference above limits. Redraw if indicated. AST 10/25/2024 9:32 PM [facility] Comment:Test cannot be perfo rmed. Sample hemolysis interference above limits. Redraw if indicated. ALT 10/25/2024 9:32 PM [facility] Comment:Test cannot be perfo rmed. Sample hemolysis interference above limits. Redraw if indicated. GFR >60 >=60 mL/min/1. 73 sq meter 10/25/2024 9:32 PM [facility] Comment:eGFR calculated with 2020 CKD-EPI equation. Vegetarian diet, extremely high or low muscle mass, and may affect results. Cystatin C with Glomerular Filtration Rate is a suitable alternative for these patients. ANION GAP 12 8 - 16 mmol/L 10/25/2024 9:32 PM MATE CHIEF [facility] Blood Venipuncture / Unknown 10/25/2024 8:30 PM MATE CHIEF 10/25/2024 8:38 PM MATE CHIEF Narrative [facility] - 10/25/2024 9:32 PM MATE CHIEF Samples containing indocyanine green cause interferences on Total and/or Direct Bilirubin and must not be measured. us Rojelio Chapa MD CHEMISTRY ORDERABLES Final Re sult [facility] CLIA# [id number] [address] [place] [address] [place] [address] * EKG 12-LEAD (10/25/2024 7:23 PM MATE CHIEF) 10/25/2024 7:23 PM MATE CHIEF Narrative INTERFACE SYSTEM - 10/26/2024 3:04 [place] [address] Test Date: 2024-10-25 Pat Name: DINA HAMILTON Department: 40 Room: 03 Gender: Female Weight Control Engineer: [id number] : 1970 Requested By: Order Number: [id number] Reading MD: Quincy Flannery Measurements Intervals [place] Rate: 86 P: 35 ME: 153 QRS: 32 QRSD: 94 T: 45 QT: 367 QTc: 439 Interpretive Statements Sinus rhythm Consider left atrial enlargement Electronically Signed On 10-26-2024 15:04:57 MATE CHIEF by Quincy Flannery Procedure Note Quincy Flannery MD - 10/26/2024 [place] [address] Test Date: 2024-10-25 Pat Name: DINA HAMILTON Department: 40 Room: 03 Gender: Female Weight Control Engineer: [id number] : 1970 Requested By: Order Number: [id number] Reading MD: Quincy Flannery Measurements Intervals [place] Rate: 86 P: 35 ME: 153 QRS: 32 QRSD: 94 T: 45 QT: 367 QTc: 439 Interpretive Statements Sinus rhythm Consider left atrial enlargement Electronically Signed On 10-26-2024 15:04:57 MATE CHIEF by Quincy Flannery Rojelio Chapa MD ECG ORDERABLES Final Result Performing Organization Address City/[facility]/ZIP Co de Phone Number INTERFACE SYSTEM Refer to clinic/hospital department * INFLUENZA A/B, RSV AND COVID-19 PCR PANEL (10/25/2024 6:39 PM MATE CHIEF) Pathologist [facility] COVID-19 PCR NOT DETECTED Not Detected 10/25/19 8:09 PM MATE CHIEF [facility] LABORATORY [facility] Influenza A by PCR NOT DETECTED Not Detected 10/25/2024 8:09 PM MATE CHIEF [facility] [employer] [facility] Influenza B by PCR NOT DETECTED Not Detected 10/25/2024 8:09 PM MATE CHIEF [facility] [employer] [facility] RSV by PCR NOT DETECTED Not Detected 10/25/2024 8:09 PM MATE CHIEF [facility] [employer] [facility] Upper Respiratory ENTIRE NASOPHARYNX / Unknown Collection / Unknown 10/25/2024 6:39 PM MATE CHIEF 10/25/2024 6:52 PM MATE CHIEF [facility] LABORATORY [facility] - 10/25/2024 8:09 PM MATE CHIEF This test has been authorized by the [...] ORDERA BLES Final Result Performing Organization Address City/[facility]/ZIP Co de Phone Number [facility] [employer] [facility] CLIA# [id number] [address] [address] * HEMOGLOBIN A1C (11/02/2023 4:04 AM MATE CHIEF) HEMOGLOBIN A1C 5.6 <5.7 % 11/02/2023 10:11 AM [facility] [employer] LABORATORY [facility] EST. AVG GLUCOSE, A1C 114 mg/dL 11/02/2023 10:11 AM [facility] [employer] LAB[facility]ATORY [facility] Blood Venipuncture / Unknown 11/02/2023 4:04 AM MATE CHIEF 11/02/2023 4:10 AM MATE CHIEF Narrative [facility] LABORATORY [facility] - 11/02/2023 10:11 AM MATE CHIEF HGB A1C INTERPRETATION NORMAL: <5.7% PRE-DIABETES: 5.7 - 6.4% DIABETES: 6.5% OR GREATER Delaney Cardona DO CHEMISTRY ORDERABLES F inal Result [facility] [employer] [facility] CLIA# [id number] [address] [place] [address] from Last 3 Months or Most Recently Relevant to Health Maintenance Insurance MEDICAID [place] RX [employer] RX Member Subscriber Plan / Payer (Ef fective for All Dates) Name:Dina Hamilton Relation to Subscriber:Self Name:Dina Hamilton Payer ID:Not on file Group ID:[id number] Type:RX Commercial Address: [address] [employer] (INTERNAL) [facility] Plans Advance Directives For more information, please contact: [phone] * Full Code (Latest Code Status on File) Date Activated Date Inactivated Comments 11/26/2023 11:17 PM 12/02/2023 12:18 AM * Full Code Date Activated Date Inactivated Comments 11/02/2023 8:40 AM 11/05/2023 8:51 PM Care Teams Wide Area Network Engineer Relationship Specialty Start Date End Date Angi Jara MD [address] [place] [address] PCP - General Internal Medicine 11/02/23
--- OUTSIDE RECORDS SUMMARY | 2025-01-21 22:05 | XMS_ITS | Clinical Summary ---
Author Organization [facility] Address [address], [address] [address] Phone Care Team Providers Care Merchant Seaman Name Role Phone Roman Chen MD Primary Care Provider [phone] Allergies Active Allergy Reactions Criticality Noted Date [...] Capsule 1 1 Active ergocalciferol (VITAMIN D) 46914 UNIT Capsule Take one capsule by mouth [...] Most Recently Relevant to Health Maintenance Insurance [facility] Care Teams Merchant Seaman Relationship Specialty Start Date End Date Roman Chen MD [address] [place] [place] [address] PCP - General Family Medicine 01/05/19
--- OUTSIDE RECORDS SUMMARY | 2025-01-21 22:05 | XMS_ITS | Continuity of Care Document ---
Author Organization [facility] Address [address] [facility] [facility] [address] [place] [address] Phone Care Team Providers Care Pulmonary Function Technologist Name Role Phone Quincy PFEIFFER, Petra Unavailable [...] - Active Procedures Procedure Date Offic/outpt E&m [facility] 2 14 Ugi Endo; W/bx 1/mx Offic/outpt E&m [facility] 45 4 Advance Directives Directive Yes / No Effective Date File Name No Information Encounters Encounter Description Practice Location Reason(s) For Visit Diagnoses Date Provider Providers Copied on Encounter [facility] s, [address], [id number] , [place] tel:[phone] [facility] No Information 6 Quincy Lambert. [address] [facility] Amanda [address], [id number] , [place]. tel:[phone] Referring Provider: [place], [address], [place], [address]. tel:[phone] Offic/outpt E&m [facility] 2 [facility] s, [address], [id number] , [place] tel:[phone] [facility] follow up (chief complaint) IBSHelicobacter pylori gastrointestinal infectionGERDFamily history of malignant neoplasm; gastrointestinal tractConstipation, unspecifiedAbdominal pain; epigastric 4 [place], [place]. Referring [place]: [place], [address], [place], [address]. tel:[phone] [facility] s, [address], [id number] , [place] tel:[phone] [facility] No Information 4 [place]. Referring [place]: [place], [address], [place], [address]. tel:[phone] Offic/outpt E&m [place] [employer] s, [address], [place], [place], [id number] , tel:[phone] [facility] multiple GI issues (chief complaint) Abdominal pain; epigastricDysphagia, unspecifiedNausea And VomitingGERDIBSConsti pation, unspecifiedHelicobact er pylori gastrointestinal infectionFamily history of malignant neoplasm; gastrointestinal tractObstructive sleep apnea 4 [place], [place]. Referring Provider: [place], [address], [place], [address]. tel:[phone] Family History Family Member Type Diagnosis Age [...] Helicobacter pylori gastrointestinal infection - Linzess 145mcg ankru ly- Plan as above under abdominal pain- [...] Simethicone prn Related to Abdominal pain; epigastric - EGD to be schedule d. Risks, benefits and alternatives to the procedure were discussed with the patient. All questions were answered.- Avoid NSAIDs- Anti-reflux measures discussed with the patient- Continue pantoprazole 40mg BID Related to Dysphagia, unspecified Assessments Type Assessment Date No Information Patient Care Teams Name Effective Dates (start - stop) Status Members No Information
--- NOTE | 2025-01-21 22:12 | ED.CHESTPAIN ---
HPI - Chest Pain General Chief Complaint: Chest Pain Stated Complaint: Chest pain, fell 3x,SHOB, blurry vision Time Seen by Provider: 01/21/25 21:27 Source: patient and family () Mode of arrival: ambulatory (by , via wheelchair assistance) Limitations: physical limitation History of Present Illness HPI narrative: Patient presents with report of 2 falls recently. One occurred last time the other occurred today. She is also complaining about chest pain that radiates to her back and shortness of breath for approximately 1 week. If he feels a notes move on pain and that she ends numbness in her bilateral fingers. She also notes that she has been having blurred vision in both eyes. Patient has a history of stroke in either 2021 or 2022 which did not leave her with any unilateral symptoms (only some disorientation) however after which she has had bilateral leg weakness for which she has never recovered. She had undergone physical therapy/rehabilitation for a while but then this was discontinued and she has essentially been bed-bound ever since. Occasionally she will attempt to get up and use a walker but she has become very deconditioned and this is the cause of her recent falls, states she will feel shaky. Was wearing livestock nutrition territory manager socks but states that she felt like she couldn't get a livestock nutrition territory manager on the floor and her legs slid out from under her. She denies hitting her head when she fell. Not anticoagulation. She felt clammy. She notes that she is to see a specialist for her legs coming up soon. She says her legs feel heavy like they are made of cement. Denies underlying respiratory conditions. Not on aspirin and Plavix. Has been having a cough productive of green-brown sputum and mucus. No fevers or chills. No diarrhea. Patient had initially been at [facility] during her stroke but unknown she received TNK/TPA. No back pain, sleeps in a recliner. States her leg weakness and numbness has been worked up previously and has not resulted in any answer for etiology. Cardiac risk factors HTN: 0 HLD: No DM: 0 Obese: Yes Smoker: 0 Personal history MS/TIA/CVA: CVA Fam Hx MS in first degree relative <65yo: No Related Data Home Medications ?Medication ?Instructions ?Recorded ?Confirmed ?Last Taken ?Type baclofen 10 mg tablet 10 mg PO QHS 09/12/22 03/06/23 Unknown History Allergies Allergy/AdvReac Type Severity Reaction Status Date / Time morphine Allergy Intermediate Itching Verified 01/21/25 21:03 tramadol Allergy Intermediate Itching Verified 01/21/25 21:03 [facility] Past Medical History Medical History Anxiety Arthritis BMI 34.0-34.9,adult BMI 37.0-37.9, adult BMI 38.0-38.9,adult BMI 39.0-39.9,adult BMI greater than 40 Chest pain Chronic idiopathic constipation Depression with anxiety Dysuria Elevated glucose Esophageal stricture Fibromyalgia GERD (gastroesophageal reflux disease) Headache Idiopathic insomnia Iron deficiency anemia following bariatric surgery Leg weakness, bilateral Low vitamin B12 level Low vitamin D level Lumbosacral radiculopathy due to degenerative joint disease of spine Migraine without aura and without status migrainosus, not intractable Neuropathy Plantar fasciitis of right foot Rib pain on left side Screening mammogram for high-risk patient Seizure-like activity Small fiber neuropathy Small vessel disease, cerebrovascular Stomach ulcer Surgical History Surgical History H/O tooth extraction History of carpal tunnel release History of gastric bypass History of knee surgery bilateral knee scope Family History Family History Grandparent Hypertension Father Mother Cancer Sibling Asthma Acute anxiety Other Carcinoma of colon Diabetes mellitus Family history of coronary artery disease Family history of lung cancer Family history of malignant neoplasm Social History Social History Smoking status: Never smoker Second hand tobacco smoke exposure: Yes Alcohol intake: current Substance use: never Substance use type: does not use Living arrangements: with family Occupation/Education: unemployed Additional occupation/education comments: disabled Gender identity (if verbalized by the patient): Female Spiritual care concerns: No Exam Narrative: GENERAL: Chronically ill appearing, well-nourished, and in no acute distress. HEAD: Normocephalic, atraumatic. EYES: Non injected, non icteric ENT: Nares clear, no rhinorrhea or epistaxis. Gross auditory acuity intact. NECK: Supple. No meningismus. CHEST: Speaking in full sentences. No respiratory distress. HEART: Regular rate and rhythm. . ABDOMEN: Obese but Soft, nondistended. EXTREMITIES: No lower extremity edema. 5/5 strength with bilateral ankle dorsiflexion and plantar flexion. Patient is able to demonstrate some ability to flex and extend head her knees though minimal and not full range of motion. SKIN: Warm, dry, no rash. NEURO: No focal deficits. Alert and oriented. Answering questions. Following commands. Normal speech without aphasia or dysarthria. Sensation intact throughout bilateral lower extremities. PSYCH: Congruent mood and affect. Course Vital Signs Vital signs: Vital Signs Pulse Rate 95 01/21/25 21:17 Respiratory Rate 15 01/21/25 21:17 Pulse Oximetry 100 01/21/25 21:17 Oxygen Delivery Room Air 01/21/25 21:17 Temperature 97.8 F 01/21/25 23:23 Pulse Rate 78 01/22/25 02:00 Respiratory Rate 15 01/22/25 02:00 Blood Pressure 128/66 01/22/25 02:00 Pulse Oximetry 95 01/22/25 02:00 Oxygen Delivery Room Air 01/21/25 21:36 MDM - Chest Pain MDM Narrative Medical decision making narrative: Patient presents with multiple complaints. She reports chest pain radiating to her back her and shortness of breath for approximately 1 week's duration. He has pain down her left arm and is having leg weakness. She has fallen twice in the past 24-48 hours. History of CVA and longstanding bilateral leg weakness which has left her debilitated. In the emergency department she is afebrile with vital signs within normal limits. Patient has an JENNIFER given comparison to prior Cr. Visual acuity 20/40 and 20/50. HEART SCORE History 2 highly suspicious 1 moderately suspicious 0 slightly suspicious History score [address] depression/elevation not due to LBBB, LVH, or digoxin [address] depression but LBBB, LVH, nonspecific repolarization changes 0 normal ECG score 0 Age 2 >/= 65 1 45-64 0 <45 Age score 1 Risk factors (HTN, hypercholesterolemia, DM, obesity with BMI >30, current smoker or cessation </=3mo), positive fam hx with parent or sibling with CVD before age 65, atherosclerotic disease (prior MS, PCI/CABG, CVA/TIA, or peripheral arterial disease) 2 >/= 3 risk factors or history of atherosclerotic dz 1 - 1-2 risk factors 0 no known risk factors Risk factor score 1 Initial Troponin 2 >3 times normal limit 1 1-3 times normal limit 0 less than or equal to normal limit Troponin score 0 Total HEART Score 2 Repeat troponin normal. Point of care ultrasound performed which does show bilateral DP arterial color flow. Patient is extremely deconditioned and unable to perform gait assessment as result. She is a high fall risk and is already demonstrated that she has fallen multiple times. However, she is adamant that she does not want to stay in the hospital and otherwise her workup has not revealed an acute cause for concern. I do believe she would benefit from PT/OT evaluation and likely would require rehabilitation however she would like to return home and have this assessment be performed in the outpatient setting to be arranged by her primary care physician. She notes that she has upcoming appointment with a specialist in regards to her legs. Unknown their specialty although possibly vascular. Her is initially frustrated by her decision but ultimately does agree to taking her back home. I strongly encourage that she keep these follow-up appointments and to not hesitate to return to the emergency department with any unmanaged, new, or worsening symptoms and explained the risks of subsequent falls and that they could cause injury. Later, after discharge, it was reexamined that patient had questionable pneumonia on CXR, less suspicious on CT though still a possibility. Patient was without leukocytosis however she had endorsed chest pain, shortness of breath, and a productive cough. For this reason antibiotics were prescribed and pneumonia added to discharge diagnosis. Called patient to notify her of this and she verified understanding. Differential Diagnosis Differential diagnosis: Likely stable angina, unstable angina pectoris, atypical chest pain, st elevation myocardial infarction, chest pain, biliary colic and other (PE, aortic dissection, electrolyte abnormalities; TIA/CVA; recrudescence; rhabdomyolysis; peripheral vascular disease; urinary tract infection, pneumonia) Lab Data Attestation: I reviewed the patient's lab results. Lab results narrative: CBC generally unremarkable except firm abnormalities on the differential BNP normal. 01/21/25 21:24 01/21/25 21:24 Labs: Lab Results 01/21/25 01/21/25 01/21/25 Range/Units 21:24 23:25 23:38 WBC 6.8 (4.5-10.0) K/mm3 RBC 4.85 (4.2-5.4) M/mm3 Hgb 12.5 (12.0-15.0) g/dL Hct 41.7 (37.0-47.0) % MCV 86.0 (80-100) fl MCH 25.8 L (26-34) pg MCHC 30.0 L (32-36) g/dl RDW 16.3 H (11.5-14.5) % Plt Count 297 (150-375) k/mm3 MPV 10.3 (7.4-10.4) fl Immature Gran % (Auto) 0.3 (0-0.5) % Neut % (Auto) 45.4 L (45.5-73.1) % Lymph % (Auto) 44.0 (18.3-44.2) % [place] % (Auto) 7.1 (2.6-8.5) % Eos % (Auto) 2.8 (0-4.4) % Baso % (Auto) 0.4 (0.2-1.2) % Lymph # (Auto) 2.98 (0.9-3.2) K/mm3 [place] # (Auto) 0.5 (0.1-0.6) K/mm3 Eos # (Auto) 0.2 (0-0.3) K/mm3 Baso # (Auto) 0.0 (0.0-0.1) K/mm3 Abs Immat Gran (auto) 0.02 (0.00-0.031) K/mm3 Absolute Neuts (auto) 3.1 (1.3-6.7) K/mm3 Absolute Nucleated RBC 0.000 (0.0-0.012) K/mm3 Nucleated RBC % 0.0 (0.0-0.2) % PT 14.0 (11.1-14.7) Seconds INR 1.0 APTT 31.8 (22.3-36.8) Seconds Sodium 140 (137-145) mmol/L Potassium 3.8 (3.4-5.0) mmol/L Chloride 105 (98-107) mmol/L Carbon Dioxide 26 (22-30) mmol/L Anion Gap 9 (4-12) mmol/L BUN 18 H (7-17) mg/dL Creatinine 1.15 H (0.7-1.0) mg/dL Estim Creat Clear Calc 59 ml/min Estimated GFR 49 L (59 - ) Glucose 122 H (65-110) mg/dL Calcium 8.7 (8.4-10.2) mg/dL Magnesium 1.9 (1.6-2.3) mg/dL Total Bilirubin 0.5 (0.2-1.3) mg/dL AST 33 (14-36) U/L ALT 31 (6-35) U/L Alkaline Phosphatase 113 (38-126) U/L Total Creatine Kinase 99 (30-135) U/L Troponin I < 0.012 (0.000-0.034) ng/mL NT-Pro-B Natriuret Pep (19.9-100) pg/mL Total Protein 8.0 (6.3-8.2) g/dL Albumin 4.2 (3.5-5.1) g/dL Lipase 45 (23-300) U/L Urine Color Yellow (Yellow) Urine Appearance Clear (Clear) Urine pH 5.0 (5.0-9.0) Ur Specific [place] 1.030 (1.001-1.035) Urine Protein Negative (Negative) mg/dL Urine Glucose (UA) Negative (Negative) mg/dL Urine Ketones Negative (Negative) mg/dL Ur Blood (Man) Negative (Negative) Urine Nitrate Negative (Negative) Urine Bilirubin Negative (Negative) Urine Urobilinogen 1.0 (<2.0) mg/dL Leukocyte Esterase Rfl Trace H (Negative) NA/UL Urine RBC 0-2 (0-2) /hpf Urine WBC 0-5 (0-3) /hpf Ur Squamous Epith Cells Few (Few) /hpf Urine Bacteria None seen /hpf Urine Casts 0-2 Urine Opiates Screen Negative (Negative) Urine Methadone Screen Negative (Negative) Ur Barbiturates Screen Negative (Negative) Ur Phencyclidine Scrn Negative (Negative) Ur Amphetamine Screen Negative (Negative) U Benzodiazepines Scrn Positive A (Negative) Urine Cocaine Screen Negative (Negative) U Cannabinoids Screen Negative (Negative) Influenza A (RT-PCR) Negative (Negative) Influenza B (RT-PCR) Negative (Negative) RSV (RT-PCR) Negative (Negative) SARS-CoV-2 RNA (RT-PCR) Negative (Negative) 01/22/25 Range/Units 00:19 WBC (4.5-10.0) K/mm3 RBC (4.2-5.4) M/mm3 Hgb (12.0-15.0) g/dL Hct (37.0-47.0) % MCV (80-100) fl MCH (26-34) pg MCHC (32-36) g/dl RDW (11.5-14.5) % Plt Count (150-375) k/mm3 MPV (7.4-10.4) fl Immature Gran % (Auto) (0-0.5) % Neut % (Auto) (45.5-73.1) % Lymph % (Auto) (18.3-44.2) % [place] % (Auto) (2.6-8.5) % Eos % (Auto) (0-4.4) % Baso % (Auto) (0.2-1.2) % Lymph # (Auto) (0.9-3.2) K/mm3 [place] # (Auto) (0.1-0.6) K/mm3 Eos # (Auto) (0-0.3) K/mm3 Baso # (Auto) (0.0-0.1) K/mm3 Abs Immat Gran (auto) (0.00-0.031) K/mm3 Absolute Neuts (auto) (1.3-6.7) K/mm3 Absolute Nucleated RBC (0.0-0.012) K/mm3 Nucleated RBC % (0.0-0.2) % PT (11.1-14.7) Seconds INR APTT (22.3-36.8) Seconds Sodium (137-145) mmol/L Potassium (3.4-5.0) mmol/L Chloride (98-107) mmol/L Carbon Dioxide (22-30) mmol/L Anion Gap (4-12) mmol/L BUN (7-17) mg/dL Creatinine (0.7-1.0) mg/dL Estim Creat Clear Calc ml/min Estimated GFR (59 - ) Glucose (65-110) mg/dL Calcium (8.4-10.2) mg/dL Magnesium (1.6-2.3) mg/dL Total Bilirubin (0.2-1.3) mg/dL AST (14-36) U/L ALT (6-35) U/L Alkaline Phosphatase (38-126) U/L Total Creatine Kinase (30-135) U/L Troponin I < 0.012 (0.000-0.034) ng/mL NT-Pro-B Natriuret Pep < 20 (19.9-100) pg/mL Total Protein (6.3-8.2) g/dL Albumin (3.5-5.1) g/dL Lipase (23-300) U/L Urine Color (Yellow) Urine Appearance (Clear) Urine pH (5.0-9.0) Ur Specific [place] (1.001-1.035) Urine Protein (Negative) mg/dL Urine Glucose (UA) (Negative) mg/dL Urine Ketones (Negative) mg/dL Ur Blood (Man) (Negative) Urine Nitrate (Negative) Urine Bilirubin (Negative) Urine Urobilinogen (<2.0) mg/dL Leukocyte Esterase Rfl (Negative) NA/UL Urine RBC (0-2) /hpf Urine WBC (0-3) /hpf Ur Squamous Epith Cells (Few) /hpf Urine Bacteria /hpf Urine Casts Urine Opiates Screen (Negative) Urine Methadone Screen (Negative) Ur Barbiturates Screen (Negative) Ur Phencyclidine Scrn (Negative) Ur Amphetamine Screen (Negative) U Benzodiazepines Scrn (Negative) Urine Cocaine Screen (Negative) U Cannabinoids Screen (Negative) Influenza A (RT-PCR) (Negative) Influenza B (RT-PCR) (Negative) RSV (RT-PCR) (Negative) SARS-CoV-2 RNA (RT-PCR) (Negative) Imaging Data Radiologist's impression: IMPRESSION: Possible early infiltrate within the superior segment of the left lower lobe, as detailed above. Impression: No acute intracranial hemorrhage or suspicious mass effect. IMPRESSION: Findings within the bilateral lung callahan suggesting pulmonary edema versus multifocal pneumonia (less likely). Bilateral nonobstructing renal calculi. Findings within the stomach suggesting gastritis. Significant fecal stasis. ECG Data EKG #1: Attestation: I personally reviewed and interpreted this ECG as follows: ECG completion date: 01/21/25 ECG completion time: 21:17 Interpretation: Normal sinus rhythm at a rate of 95 beats per minute. TX interval 155. QRS 89. QT/QTC 356/449. No T-wave inversions. Discharge Plan Discharge Clinical Impression: JENNIFER (acute kidney injury), Gastritis, Paresthesia of bilateral legs, Fall, Chest pain, Pneumonia Patient Disposition: Home Condition: Stable Instructions: Antibiotic Form, Chest Pain (ED), Gastritis (DC), Acute Kidney Injury (DC), Paresthesia (ED), Fall Prevention (ED) Additional Instructions: As we discussed, no clear cause of your symptoms today. From a chest pain perspective you are low but not negligible risk and I do recommend that you follow-up with a distillery miller helper. If you need one, the name of one is listed below. I do have concern about the longstanding paresthesias and subsequent deconditioning in your legs as they seem to be contributing to falls and you are at risk of injuring your self as a result. Keep your upcoming follow-up appointment with the specialist and follow-up with your primary care physician. You would likely benefit from evaluation by physical therapy to see what your rehabilitation needs are. You encouraged return to the emergency department any time with recurrent, new, worsening symptoms. Continue taking your medications as prescribed. Patient Language: Slovenian Prescriptions: New doxycycline hyclate 100 mg capsule 100 mg PO DAILY Qty: 5 0RF No Action sucralfate [Carafate] 1 gram tablet 1 g PO Q6H Qty: 120 2RF calcium carbonate-vitamin D3 [Os-Luke 500 + D3] 500 mg-5 mcg (200 unit) tablet 1 tablet PO TID Qty: 90 0RF metaxalone 800 mg tablet 800 mg PO TID PRN (Reason: muscle pain) Qty: 60 0RF baclofen 10 mg tablet 10 mg PO QHS alprazolam 1 mg tablet 1 mg PO BID Qty: 60 0RF quetiapine 400 mg tablet 400 mg PO HS Qty: 30 1RF potassium chloride 20 mEq tablet extended release 20 meq PO DAILY Qty: 30 1RF metolazone 5 mg tablet 5 mg PO DAILY Qty: 30 1RF gabapentin 300 mg capsule See Rx Instructions .ROUTE .COMPLEX Qty: 120 1RF Dose Instruction: TAKE 1 CAPSULE BY MOUTH THREE TIMES DAILY Rx Instructions: TAKE 2 CAPSULES in the morning, 1 capsule at noon, and 1 capsule at bedtime furosemide 40 mg tablet 40 mg PO QAM Qty: 30 1RF eszopiclone 3 mg tablet 3 mg PO QHS Qty: 30 1RF escitalopram oxalate 20 mg tablet 20 mg PO DAILY Qty: 30 1RF Follow-up/Referrals: Donna Lisa MD [Physician] - (patient's stated PCP) Omid Gardner MD [Physician] - (cardiology) UNKNOWN,DOCTOR [Primary Care Provider] - Stand Alone Forms: Work/School Release IP Time of Disposition: 02:08
[2025-01-21 22:46] VITALS: BP 118/55; PULSE 88; RESP 15; O2SAT 96
[2025-01-21 23:22] LABS: Creatine Kinase 99 U/L (30-135); Magnesium 1.9 mg/dL (1.6-2.3)
[2025-01-21 23:23] VITALS: TEMP 36.6
[2025-01-21] MEDS: SODIUM CHLORIDE 0.9% IV 1,000 ML 999 ML IV CONT (23:34)
[2025-01-21 23:36] LABS: Add Urine Microscopic? YES; Appearance Urine Clear (Clear); Bacteria Urine None Seen /hpf; Bilirubin Urine Negative (Negative); Blood Urine Negative (Negative); Color Urine Yellow (Yellow); Glucose Urine UA Negative (Negative); Ketones Urine Negative (Negative); Leukocyte Esterase Ur Trace LEU/UL (Negative); Nitrate Urine Negative (Negative); Non Pathogenic Casts 0-2; Protein Urine Negative (Negative); RBC Urine 0-2 /hpf (0-2); Squamous Epithelial Cell Urine Few /hpf (Few); WBC Urine 0-5 /hpf (0-3)
[2025-01-22 00:18] LABS: Influenza A QL RT-PCR Negative (Negative); Influenza B QL RT-PCR Negative (Negative); RSV RNA, RT-PCR Negative (Negative); SARS-CoV-2 RNA PCR Negative (Negative)
--- NOTE | 2025-01-22 00:20 | ECG_ITS ---
Test Date: 2025-01-22 00:27:45 Measurements Intervals [place] Rate: 82 P: 31 MT: 163 QRS: 28 QRSD: 80 T: 62 QT: 379 QTc: 443 Interpretive Statements SINUS RHYTHM Compared to ECG 01/21/2025 21:17:36 No significant changes Electronically Signed On 01-22-2025 17:11:41 CDT by Omid Gardner M.D.
[2025-01-22 00:36] LABS: Amphetamine Screen Urine Negative (Negative); Barbiturate Screen Urine Negative (Negative); Benzodiazepines Screen Urine Positive (Negative); Cannabinoid Screen Urine Negative (Negative); Cocaine Screen Urine Negative (Negative); Methadone Screen Urine Negative (Negative); Opiate Screen Urine Negative (Negative); Phencyclidine Screen Urine Negative (Negative)
[2025-01-22 00:47] LABS: Troponin I < 0.012 ng/mL (0.000-0.034)
[2025-01-22 01:30] LABS: NT Pro B Type Natriuretic Pept < 20 pg/mL (19.9-100)
[2025-01-22 02:00] VITALS: BP 128/66; PULSE 78; RESP 15; O2SAT 95
== END 2025-01-22 03:05 | disposition home or self-care (01) ==
PROVIDERS: Emergency Medicine; Emergency Provider Student in an Organized Health Care Education/Training Program
DX: J18.9 Pneumonia, unspecified organism (principal); N17.9 Acute kidney failure, unspecified; K29.70 Gastritis, unspecified, without bleeding; R07.9 Chest pain, unspecified; I69.998 Other sequelae following unspecified cerebrovascular disease; R20.2 Paresthesia of skin; R06.02 Shortness of breath; K59.04 Chronic idiopathic constipation; K21.9 Gastro-esophageal reflux disease without esophagitis; G62.9 Polyneuropathy, unspecified; M19.90 Unspecified osteoarthritis, unspecified site; M79.7 Fibromyalgia; F41.8 Other specified anxiety disorders; F51.01 Primary insomnia; Z98.84 Bariatric surgery status; Z77.22 Contact with and (suspected) exposure to environmental tobacco smoke (acute) (chronic); Z79.899 Other long term (current) drug therapy; W18.39XA Other fall on same level, initial encounter
CPT/HCPCS: 36415; 70450; 71046; 71275; 74174; 80053; 80307; 81001; 82550; 83690; 83735; 83880; 84484; 85025; 85610; 85730; 87637; 93005; 96360; 99284; J7030; Q9967